=== PATIENT | female | born 1975 | race Caucasian/White ===

== ENCOUNTER 2016-08-27 21:36 | Emergency (ER) | payer SELFPAY ==
[2016-08-27 21:43] VITALS: BP 110/59; PULSE 71; TEMP 99; BMI 25.9
[2016-08-27] MEDS ORDERED: diphenhydrAMINE HCL 50 MG CAPSULE PO ONE (22:21)
[2016-08-27] MEDS ORDERED: DEXAMETHASONE SOD PHOSPHATE 10 MG/1 ML VIAL IM ONE (22:21)
[2016-08-27] MEDS ORDERED: DEXAMETHASONE SOD PHOSPHATE 10 MG/1 ML VIAL ONE (22:25)
[2016-08-27] MEDS ORDERED: diphenhydrAMINE HCL 25 MG CAPSULE (FP) PO ONE (22:25)
--- NOTE | 2016-08-27 22:27 | PDOC ---
History of Present Illness - General Chief Complaint: Rash Stated Complaint: RASH/HIVES Time Seen by Provider: 08/27/16 22:02 History Source: Patient Exam Limitations: No Limitations - History of Present Illness Initial Comments: 08/27/16 22:22 40 yr female with itchy rash to arms and legs for 4 days. Pt took benadryl with no relief. no fever no diff breathing or eating. no allergies. Severity: Yes: moderate Location: reports: extremities Respiratory Risk Factors: reports: no cause identified Past History - Past Medical History Allergies/Adverse Reactions: Allergies Allergy/AdvReac Type Severity Reaction Status Date / Time No Known Allergies Allergy Verified 08/27/16 21:39 Home Medications: Ambulatory Orders Diphenhydramine HCl [Benadryl -] 25 mg PO Q6H PRN #28 capsule 08/27/16 Other medical history: finger surgery - Surgical History Abdominal Surgery: Yes Cholecystectomy: (GALLSTONES.) - Psycho/Social/Smoking Cessation Hx Anxiety: No Suicidal Ideation: No Smoking History: Never smoked Have you smoked in the past 12 months: No Number of Cigarettes Smoked Daily: 0 Hx Alcohol Use: No Drug/Substance Use Hx: No Substance Use Type: None Review of Systems - Review of Systems Able to Perform ROS?: Yes Is the patient limited Cameroonian proficient: No Constitutional: No: Symptoms Reported HEENTM: No: Symptoms Reported Respiratory: No: Symptoms reported Cardiac (ROS): No: Symptoms Reported ABD/GI: No: Symptoms Reported : No: Symptoms Reported Musculoskeletal: No: Symptoms Reported Integumentary: Yes: See HPI, Rash *Physical Exam - Vital Signs Last Vital Signs Temp Pulse Resp BP Pulse Ox 99 F 71 18 110/59 99 08/27/16 21:40 08/27/16 21:40 08/27/16 21:40 08/27/16 21:40 08/27/16 21:40 - Physical Exam General Appearance: Yes: Nourished, Appropriately Dressed HEENT: positive: EOMI, JHON, Normal ENT Inspection, TMs Normal, Pharynx Normal Neck: positive: Supple. negative: Tender Respiratory/Chest: positive: Lungs Clear, Normal Breath Sounds Cardiovascular: positive: Regular Rhythm, Regular Rate Gastrointestinal/Abdominal: positive: Normal Bowel Sounds, Soft Musculoskeletal: positive: Normal Inspection Extremity: positive: Normal Capillary Refill Integumentary: positive: Normal Color, Dry, Warm, Hives (bilateral upper arms, outer thighs with hives), Rash Neurologic: positive: Fully Oriented, Alert, Normal Mood/Affect, Normal Response , Motor Strength 5/5 Medical Decision Making - Medical Decision Making 08/27/16 22:24 cc: allergic reaction, hives unknown cause will give decadron and benadryl 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 pt is afebrile non toxic vitals stable *DC/Admit/Observation/Transfer Diagnosis at time of Disposition: Hives Allergic reaction Qualifiers: Encounter type: initial encounter Qualified Code(s): T78.40XA - Allergy, unspecified, initial encounter - Discharge Dispostion Disposition: HOME Condition at time of disposition: Good - Prescriptions Prescriptions: Diphenhydramine HCl [Benadryl -] 25 mg PO Q6H PRN #28 capsule PRN Reason: itching - Referrals Referrals: Sheryl Pineda [Primary Care Provider] - - Patient Instructions Additional Instructions: wash all bed sheets, towels and clothing in hot water take benadryl as directed for itching follow with the distillery miller helper call tomorrow to make appointment call [phone] cool water to bathe 'use Aveeno oatmeal soap or body wash to help soothe the skin [place], [place] benadryl segn lo indicado para picar Siga con el dermatlogo llame maana para hacer holger llamar al [phone] Agua fra para baarse 'use Aveeno jabn de apolinar o lavado corporal para ayudar a calmar la piel Print Language: IVORIAN
== END 2016-08-27 23:00 | disposition home or self-care (01) ==
LOC: JERFT 21:36
PROC: 3E0233Z Introduction of Anti-inflammatory into Muscle, Percutaneous Approach (ICD-10-PCS; principal; 2016-08-27)
DX: L50.0 Allergic urticaria (principal); T78.40XA Allergy, unspecified, initial encounter; X58.XXXA Exposure to other specified factors, initial encounter
CPT/HCPCS: 99281-25

== ENCOUNTER 2016-09-24 13:39 | Emergency (ER) | payer SELFPAY ==
[2016-09-24 13:45] VITALS: BMI 25.4
[2016-09-24] MEDS ORDERED: HEMOQUE TEST 1 EACH EACH ONE (14:05)
[2016-09-24] MEDS ORDERED: ONDANSETRON 4 MG/2 ML VIAL IVPB ONE (14:41)
[2016-09-24] MEDS ORDERED: SODIUM CHLORIDE 1,000 ML IV STA (14:41)
[2016-09-24] MEDS ORDERED: MECLIZINE HCL 25 MG TABLET (FP) PO ONE (14:41)
[2016-09-24] MEDS ORDERED: ONDANSETRON 4 MG/2 ML VIAL ONE (14:57)
[2016-09-24] MEDS ORDERED: MECLIZINE HCL 25 MG TABLET (FP) ONE (14:57)
[2016-09-24 15:34] LABS: BASOPHIL 0.5 % (0-2.0); EOSINOPHIL 2.4 % (0-4.5); MCH 29.2 pg (25.7-33.7); MEAN CELL VOLUME 88.4 fl (80-96); MEAN PLT VOLUME 9.7 fl (7.5-11.1); NEUTROPHILS 63.5 % (42.8-82.8); PLATELET COUNT 242 K/MM3 (134-434); RDW 13.5 % (11.6-15.6); WHITE BLOOD COUNT 7.9 K/mm3 (4.0-10.0)
[2016-09-24 15:40] LABS: ALBUMIN 3.5 g/dl (3.4-5.0); ANION GAP 10 (8-16); BILIRUBIN,TOTAL 0.4 mg/dL (0.2-1.0); CALCIUM 8.7 mg/dL (8.5-10.1); CO2 25 mmol/L (21-32); CREATININE 0.5 mg/dL (0.55-1.02); GLUCOSE,RANDOM 115 mg/dL (74-106); SGPT/ALT 22 U/L (12-78); TOT PROT 7.1 g/dl (6.4-8.2)
[2016-09-24 15:43] LABS: ALK PHOS 56 U/L (45-117); TROPONIN I < 0.02 ng/ml (0.00-0.05)
[2016-09-24 15:47] LABS: SGOT/AST 21 U/L (15-37)
--- NOTE | 2016-09-24 16:24 | PDOC ---
History of Present Illness - General History Source: Patient Exam Limitations: No Limitations - History of Present Illness Initial Comments: 09/24/16 16:37 The patient is a 40-year-old woman with a significant past medical history of vertigo who presents to the emergency department for further evaluation of dizziness for today. She states that she is experiencing dizziness, described as room-spinning" sensations with associated nausea and left ear pain since this morning. She reports her symptoms are consisted with her vertigo for which she has experienced in the past. No vomiting. She denies any recent head injury. No other reported complaints. Her last menstrual period was on 09/16. She denies fever, chills, cough, hemoptysis, shortness of breath, headache. She denies chest pain, headache, lightheadedness, syncope, jaw/ back pain lower extremity pain/swelling, calf tenderness/pain She denies abdominal pain, vomiting, urinary symptoms. Allergies: No Known Drug Allergies. Pats Surgical History: Social History: No tobacco, EtOH and recreational drug use. Primary Care Physician: N/A <Susanne Miranda - Last Filed: 09/24/16 16:47> <Susan Baker - Last Filed: 09/24/16 20:07> <Chanda Umanzor - Last Filed: 09/25/16 21:54> - General Chief Complaint: Lightheaded Stated Complaint: DIZZINESS Time Seen by Provider: 09/24/16 14:40 Past History <Susanne Miranda - Last Filed: 09/24/16 16:47> <Susan Baker - Last Filed: 09/24/16 20:07> - Past Medical History Diabetes: Yes (iddm) Other medical history: vertigo - Surgical History Abdominal Surgery: Yes Cholecystectomy: (GALLSTONES.) - Psycho/Social/Smoking Cessation Hx Anxiety: No Suicidal Ideation: No Smoking History: Never smoked Have you smoked in the past 12 months: No Number of Cigarettes Smoked Daily: 0 Information on smoking cessation initiated: No Hx Alcohol Use: No Drug/Substance Use Hx: No Substance Use Type: None <Chanda Umanzor - Last Filed: 09/25/16 21:54> - Past Medical History Allergies/Adverse Reactions: Allergies Allergy/AdvReac Type Severity Reaction Status Date / Time No Known Allergies Allergy Verified 09/24/16 13:41 Home Medications: Ambulatory Orders Meclizine HCl [Antivert -] 25 mg PO TID PRN #21 tablet 09/24/16 Review of Systems - Review of Systems Able to Perform ROS?: Yes Comments:: 09/24/16 16:44 GENERAL/CONSTITUTIONAL: No: fever, chills, weakness, loss of appetite. HEAD, EYES, EARS, NOSE AND THROAT: Yes: Left ear pain. No: change in vision, discharge, sore throat, throat swelling. CARDIOVASCULAR: No: chest pain, lightheadedness, palpitations, syncope RESPIRATORY: No: cough, shortness of breath, wheezing, hemoptysis, stridor. GASTROINTESTINAL: Yes: Nausea. No: vomiting, abdominal cramping, diarrhea, rectal bleeding, constipation. GENITOURINARY: No: dysuria, hematuria, frequency, urgency, flank pain. MUSCULOSKELETAL: No: back pain, neck pain, joint pain, muscle swelling or pain SKIN AND BREASTS: No: lesions, pallor, rash or easy bruising. NEUROLOGIC: Yes: Vertigo No: headache, paresthesias, weakness ENDOCRINE: No: unexplained weight gain or loss HEMATOLOGIC/LYMPHATIC: No: anemia, easy bleeding, swelling nodes <Susanne Miranda - Last Filed: 09/24/16 16:47> *Physical Exam - Vital Signs Last Vital Signs Temp Pulse Resp BP Pulse Ox 98.0 F 77 18 108/69 100 09/24/16 13:42 09/24/16 13:42 09/24/16 13:42 09/24/16 13:42 09/24/16 13:42 - Physical Exam Comments: 09/24/16 16:45 GENERAL: The patient is in no acute distress. HEAD: Normal with no signs of trauma. EYES: PERRLA, EOMI, sclera anicteric, conjunctiva clear. No nystagmus. ENT: Ears normal, nares patent, oropharynx clear without exudates. Moist mucous membranes. NECK: Normal range of motion, supple without lymphadenopathy, JVD, or masses. LUNGS: Breath sounds equal, clear to auscultation bilaterally. No wheezes, and no crackles. HEART:Regular rate and rhythm, normal S1 and S2 without murmur, rub or gallop. ABDOMEN: Soft, nontender, normoactive bowel sounds. No guarding, no rebound. EXTREMITIES: Normal range of motion, no edema. No clubbing or cyanosis. No erythema, or tenderness. NEUROLOGICAL: Cranial nerves II through XII grossly intact. Normal speech. No focal neurological deficits. MUSCULOSKELETAL: Back non-tender to palpation, no CVA tenderness SKIN: Warm, Dry, normal turgor, no rashes or lesions noted. <MirandaSusanne - Last Filed: 09/24/16 16:47> - Vital Signs Last Vital Signs Temp Pulse Resp BP Pulse Ox 98.0 F 77 18 108/69 100 09/24/16 13:42 09/24/16 13:42 09/24/16 13:42 09/24/16 13:42 09/24/16 13:42 <Susan Baker - Last Filed: 09/24/16 20:07> - Vital Signs Last Vital Signs Temp Pulse Resp BP Pulse Ox 98.0 F 77 18 108/69 100 09/24/16 13:42 09/24/16 13:42 09/24/16 13:42 09/24/16 13:42 09/24/16 13:42 <Chanda Umanzor - Last Filed: 09/25/16 21:54> Heart Score/ECG Review #1 ECG reviewed & interpreted by me at: 16:14 09/24/16 16:14 Twelve-lead EKG was performed and reviewed by me. There is normal sinus rhythm with a slightly bradycardiac rate of 55 bpm. The axis is normal. The intervals are normal - pr:144ms, QRS: 80ms, QTc:411ms. There are no ST elevations or depressions. T waves upright <Chanda Umanzor - Last Filed: 09/25/16 21:54> ED Treatment Course - LABORATORY CBC & Chemistry Diagram: 09/24/16 15:10 09/24/16 15:10 - ADDITIONAL ORDERS Additional order review: Laboratory Results 09/24/16 09/24/16 09/24/16 15:10 15:10 14:18 Sodium 141 Potassium 4.3 Chloride 106 Carbon Dioxide 25 Anion Gap 10 BUN 13 Creatinine 0.5 L Creat Clearance w eGFR > 60 POC Glucometer 120.98835 Random Glucose 115 H D Calcium 8.7 Total Bilirubin 0.4 D AST 21 D ALT 22 D Alkaline Phosphatase 56 Creatine Kinase 199 H CK-MB (CK-2) 1.109 Troponin I < 0.02 Total Protein 7.1 Albumin 3.5 Serum , Qual Negative 09/24/16 09/24/16 15:10 14:18 RBC 4.47 MCV 88.4 MCHC 33.0 RDW 13.5 MPV 9.7 D Neutrophils % 63.5 Lymphocytes % 28.7 Monocytes % 4.9 Eosinophils % 2.4 Basophils % 0.5 POC Glucometer 120.83129 - Medications Given in the ED: ED Medications Discontinued Medications Generic Name Dose Route Start Last Admin Trade Name Freq PRN Reason Stop Dose Admin Meclizine HCl 25 mg 09/24/16 14:41 09/24/16 15:04 Antivert - PO 09/24/16 14:42 25 mg ONCE ONE Administration Ondansetron HCl 4 mg 09/24/16 14:41 09/24/16 15:04 Zofran Injection IVPB 09/24/16 14:42 4 mg ONCE ONE Administration <Susanne Miranda - Last Filed: 09/24/16 16:47> - LABORATORY CBC & Chemistry Diagram: 09/24/16 15:10 09/24/16 15:10 - ADDITIONAL ORDERS Additional order review: Laboratory Results 09/24/16 09/24/16 09/24/16 15:10 15:10 14:18 Sodium 141 Potassium 4.3 Chloride 106 Carbon Dioxide 25 Anion Gap 10 BUN 13 Creatinine 0.5 L Creat Clearance w eGFR > 60 POC Glucometer 120.54731 Random Glucose 115 H D Calcium 8.7 Total Bilirubin 0.4 D AST 21 D ALT 22 D Alkaline Phosphatase 56 Creatine Kinase 199 H CK-MB (CK-2) 1.109 Troponin I < 0.02 Total Protein 7.1 Albumin 3.5 Serum , Qual Negative 09/24/16 09/24/16 15:10 14:18 RBC 4.47 MCV 88.4 MCHC 33.0 RDW 13.5 MPV 9.7 D Neutrophils % 63.5 Lymphocytes % 28.7 Monocytes % 4.9 Eosinophils % 2.4 Basophils % 0.5 POC Glucometer 120.22408 - Medications Given in the ED: ED Medications Discontinued Medications Generic Name Dose Route Start Last Admin Trade Name Freq PRN Reason Stop Dose Admin Lorazepam 0.5 mg 09/24/16 17:22 09/24/16 18:16 Ativan Injection - IVPUSH 09/24/16 17:23 Not Given ONCE ONE Meclizine HCl 25 mg 09/24/16 14:41 09/24/16 15:04 Antivert - PO 09/24/16 14:42 25 mg ONCE ONE Administration Ondansetron HCl 4 mg 09/24/16 14:41 09/24/16 15:04 Zofran Injection IVPB 09/24/16 14:42 4 mg ONCE ONE Administration <Susan Baker - Last Filed: 09/24/16 20:07> - LABORATORY CBC & Chemistry Diagram: 09/24/16 15:10 09/24/16 15:10 - ADDITIONAL ORDERS Additional order review: Laboratory Results 09/24/16 09/24/16 09/24/16 15:10 15:10 14:18 Sodium 141 Potassium 4.3 Chloride 106 Carbon Dioxide 25 Anion Gap 10 BUN 13 Creatinine 0.5 L Creat Clearance w eGFR > 60 POC Glucometer 120.60409 Random Glucose 115 H D Calcium 8.7 Total Bilirubin 0.4 D AST 21 D ALT 22 D Alkaline Phosphatase 56 Creatine Kinase 199 H CK-MB (CK-2) 1.109 Troponin I < 0.02 Total Protein 7.1 Albumin 3.5 Serum , Qual Negative 09/24/16 09/24/16 15:10 14:18 RBC 4.47 MCV 88.4 MCHC 33.0 RDW 13.5 MPV 9.7 D Neutrophils % 63.5 Lymphocytes % 28.7 Monocytes % 4.9 Eosinophils % 2.4 Basophils % 0.5 POC Glucometer 120.31511 - Medications Given in the ED: ED Medications Discontinued Medications Generic Name Dose Route Start Last Admin Trade Name Freq PRN Reason Stop Dose Admin Meclizine HCl 25 mg 09/24/16 14:41 09/24/16 15:04 Antivert - PO 09/24/16 14:42 25 mg ONCE ONE Administration Ondansetron HCl 4 mg 09/24/16 14:41 09/24/16 15:04 Zofran Injection IVPB 09/24/16 14:42 4 mg ONCE ONE Administration <Chanda Umanzor - Last Filed: 09/25/16 21:54> Medical Decision Making - Medical Decision Making A portion of this note was documented by scribe services under my direction. I have reviewed the details of the note, within reason, and agree with the documentation with the following case summary and management plan written by me. Nursing documentation reviewed and incorporated into medical decision making 09/24/16 16:17 This is a 40-year-old female with a history of vertigo, no history of diabetes, hypertension, hyperlipidemia Patient presents emergency department with a complaint of vertigo. Patient states she woke with her symptoms Her symptoms are identical to her prior episodes of vertigo. No focal weakness or numbness. No visual deficits. No slurred speech. On examination: RRR CTA NEURO: Mental status: The patient is oriented x3. Cranial nerves: Cranial nerves II through XII are intact Motor: The upper extremities are 5 over 5 in all muscle groups. The lower extremities are 5 over 5 in all muscle groups. Sensation: Sensation is intact to light touch throughout. Cerebellar: Aqobzo-lmuagq-onhw is normal in both upper extremities. Heel-knee- chatman is normal in both lower extremities. Reflexes: 2+ and symmetric in the upper and lower extremities. Gait: Normal. Ambulatory to the bathroom with no difficulty Differential diagnosis: 09/24/16 17:22 Patient remains vertiginous. She would like to go home Does not want to stay for any additional medication (Ativan) or for Head CT 09/24/16 17:45 Laboratory Tests 09/24/16 09/24/16 09/24/16 15:10 15:10 15:10 WBC 7.9 Hgb 13.0 Hct 39.5 Plt Count 242 Sodium 141 Potassium 4.3 Chloride 106 Carbon Dioxide 25 BUN 13 Creatinine 0.5 L Random Glucose 115 H D Creatine Kinase 199 H CK-MB (CK-2) 1.109 Troponin I < 0.02 Serum , Qual Negative Pt ambulatory to the bathroom with no assistance No new neurolgical findings As patient was about to be discharged, she states she would like to be imaged Will do CT scan Pt signed out to Dr Baker Prescription for Meclizine written Clinical Impression: vertigo <Chanda Umanzor - Last Filed: 09/25/16 21:54> *DC/Admit/Observation/Transfer - Attestations Scribe Attestion: 09/24/16 16:45 Documentation prepared by Susanne Miranda, acting as medical laboratory specialist for Chanda Umanzor MD. <Susanne Miranda - Last Filed: 09/24/16 16:47> <Susan Baker - Last Filed: 09/24/16 20:07> - Discharge Dispostion Admit: No <Chanda Umanzor - Last Filed: 09/25/16 21:54> Diagnosis at time of Disposition: Vertigo - Discharge Dispostion Disposition: HOME Condition at time of disposition: Stable - Prescriptions Prescriptions: Meclizine HCl [Antivert -] 25 mg PO TID PRN #21 tablet PRN Reason: Vertigo - Referrals Referrals: Sarahy Henderson MD [Staff Physician] - - Patient Instructions Printed Discharge Instructions: DI for Vertigo, Vertigo (Alternative Therapy) Additional Instructions: Thank you for coming in to the ER today Please take medications as prescribed Please return to the ER for any other concerns or complaints please follow up with a primary care physician - Post Discharge Activity Work/School Note: Back to Work
[2016-09-24] MEDS ORDERED: LORAZEPAM CARPU-JECT 2 MG/ML DISP.SYRIN IVPUSH ONE (17:22)
[2016-09-24 20:34] VITALS: BP 110/74; PULSE 60; TEMP 97.8
--- NOTE | 2016-09-25 14:14 | EKG ---
Test Reason : Blood Pressure : / mmHG Vent. Rate : 055 BPM Atrial Rate : 055 BPM P-R Int : 144 ms QRS Dur : 080 ms QT Int : 430 ms P-R-T Axes : 028 048 020 degrees QTc Int : 411 ms SINUS BRADYCARDIA OTHERWISE NORMAL ECG WHEN COMPARED WITH ECG OF 07-APR-2015 13:10, NO SIGNIFICANT CHANGE WAS FOUND Confirmed by TOÑA BANUELOS MD ([id number]) on 09/25/2016 2:14:13 PM Referred By: Confirmed By:TOÑA BANUELOS MD
== END 2016-09-24 20:35 | disposition home or self-care (01) ==
LOC: JER 13:39
PROC: 3E033GC Introduction of Other Therapeutic Substance into Peripheral Vein, Percutaneous Approach (ICD-10-PCS; principal; 2016-09-24)
DX: R42 Dizziness and giddiness (principal)
CPT/HCPCS: 36415; 70450-TC; 80053; 82550; 82553; 84484; 84703; 85025; 93005; 93010; 99284-25

== ENCOUNTER 2017-01-26 17:32 | Emergency (ER) | payer SELFPAY ==
[2017-01-26 17:44] VITALS: BP 116/67; PULSE 70; TEMP 99.2; BMI 28.0
[2017-01-26] MEDS ORDERED: diphenhydrAMINE HCL 12.5 MG/5 ML UNIT-DOSE CUPS PO ONE (19:05)
--- NOTE | 2017-01-26 19:11 | PDOC ---
History of Present Illness - General Chief Complaint: Rash Stated Complaint: RASH Time Seen by Provider: 01/26/17 19:01 History Source: Patient Exam Limitations: No Limitations - History of Present Illness Initial Comments: 01/26/17 19:06 41 yr female with itchy rash under eyes, eyelids for one week. Pt with some itching to the forehead. no fever denies using any different makeup or facial creams. 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 No medical history or allergies. Timing/Duration: reports: week Severity: Yes: mild Location: reports: face Past History - Past Medical History Allergies/Adverse Reactions: Allergies Allergy/AdvReac Type Severity Reaction Status Date / Time No Known Allergies Allergy Verified 01/26/17 17:40 Home Medications: Ambulatory Orders Cetirizine HCl 10 mg PO DAILY #10 tablet 01/26/17 Hydrocortisone 0.5% Cream [Hytone 0.5% Cream -] 1 applic TP BID #1 tube Diabetes: No - Surgical History Abdominal Surgery: Yes Cholecystectomy: (GALLSTONES.) - Immunization History Immunization Up to Date: Yes - Suicide/Smoking/Psychosocial Hx Smoking History: Never smoked Have you smoked in the past 12 months: No Number of Cigarettes Smoked Daily: 0 Information on smoking cessation initiated: No Hx Alcohol Use: No Drug/Substance Use Hx: No Substance Use Type: None Review of Systems - Review of Systems Able to Perform ROS?: Yes Is the patient limited Greek proficient: No Constitutional: No: Symptoms Reported HEENTM: No: Symptoms Reported Respiratory: No: Symptoms reported Cardiac (ROS): No: Symptoms Reported ABD/GI: No: Symptoms Reported : No: Symptoms Reported Musculoskeletal: No: Symptoms Reported Integumentary: Yes: Symptoms Reported *Physical Exam - Vital Signs Last Vital Signs Temp Pulse Resp BP Pulse Ox 99.2 F 70 14 116/67 100 01/26/17 17:40 01/26/17 17:40 01/26/17 17:40 01/26/17 17:40 01/26/17 17:40 - Physical Exam General Appearance: Yes: Nourished, Appropriately Dressed HEENT: positive: EOMI, JHON Neck: positive: Supple Respiratory/Chest: positive: Lungs Clear, Normal Breath Sounds Cardiovascular: positive: Regular Rhythm, Regular Rate Gastrointestinal/Abdominal: positive: Normal Bowel Sounds, Soft Musculoskeletal: positive: Normal Inspection Extremity: positive: Normal Capillary Refill, Normal Inspection, Normal Range of Motion Integumentary: positive: Normal Color, Dry, Warm, Rash (bilateral eyelids and under the eys with red scaly rash approximately 3cm in size under the eyes) Neurologic: positive: Fully Oriented, Alert, Normal Mood/Affect, Normal Response , Motor Strength 5/5 Medical Decision Making - Medical Decision Making 01/26/17 19:09 cc: rash itchy to eyelids and under the eyes for one week no fever no other rash to the body will give benadryl now dc with cortisone 0.5% cream to the rash *DC/Admit/Observation/Transfer Diagnosis at time of Disposition: Contact dermatitis Qualifiers: Contact dermatitis type: allergic Contact dermatitis trigger: unspecified trigger Qualified Code(s): L23.9 - Allergic contact dermatitis, unspecified cause - Discharge Dispostion Disposition: HOME Condition at time of disposition: Good - Prescriptions Prescriptions: Cetirizine HCl 10 mg PO DAILY #10 tablet Hydrocortisone 0.5% Cream [Hytone 0.5% Cream -] 1 applic TP BID #1 tube - Referrals Referrals: Pretty Lagn MD [Staff Physician] - - Patient Instructions Additional Instructions: cool compresses to the face apply the cream as directed twice a day take bendaryl at home for itching at bedtime , next dose tomorrow night take cetirizine in the morning for itching and rash
[2017-01-26] MEDS ORDERED: diphenhydrAMINE HCL 12.5 MG/5 ML UNIT-DOSE CUPS ONE (19:16)
== END 2017-01-26 19:26 | disposition home or self-care (01) ==
LOC: JERFT 17:32
DX: L23.9 Allergic contact dermatitis, unspecified cause (principal)
CPT/HCPCS: 99281-25

== ENCOUNTER 2017-06-19 12:15 | Emergency (ER) | payer SELFPAY ==
[2017-06-19 12:29] VITALS: TEMP 98.1; BMI 29.1
[2017-06-19] MEDS ORDERED: SODIUM CHLORIDE 0.9% 1000 ML INFUS.BAG IV ONE (13:57)
[2017-06-19] MEDS ORDERED: MECLIZINE HCL 25 MG TABLET (FP) PO ONE (13:57)
[2017-06-19] MEDS ORDERED: MECLIZINE HCL 25 MG TABLET (FP) ONE (14:08)
--- NOTE | 2017-06-19 14:21 | PDOC ---
History of Present Illness - General Chief Complaint: Lightheaded Stated Complaint: DIZZINESS Time Seen by Provider: 06/19/17 13:33 History Source: Patient Exam Limitations: Language Barrier - History of Present Illness Initial Comments: 06/19/17 14:18 The patient is a 41F with a PMH of vertigo who presents with acute onset dizziness, nausea, and vomiting. The patient states that she felt her normal state of health last night. This morning, she woke up and felt very nauseous, vomited x 4 NBNB, and a room spinning sensation which she identifies as exactly like her vertigo sensation. She denies any other complaints including fever, chills, nausea, vomiting. She also admits to dysuria. LMP is May 04. She is unsure if she is . Past History - Past Medical History Allergies/Adverse Reactions: Allergies Allergy/AdvReac Type Severity Reaction Status Date / Time No Known Allergies Allergy Verified 06/19/17 12:29 Home Medications: Ambulatory Orders Cephalexin Monohydrate [Keflex -] 500 mg PO BID #14 capsule 06/19/17 Meclizine HCl [Antivert -] 25 mg PO DAILY #7 tablet 06/19/17 No Known Home Medication 06/19/17 COPD: No Diabetes: No - Surgical History Abdominal Surgery: Yes Cholecystectomy: (GALLSTONES.) - Immunization History Immunization Up to Date: Yes - Suicide/Smoking/Psychosocial Hx Smoking History: Never smoked Have you smoked in the past 12 months: No Number of Cigarettes Smoked Daily: 0 Hx Alcohol Use: No Drug/Substance Use Hx: No Substance Use Type: None Review of Systems - Review of Systems Able to Perform ROS?: Yes Comments:: 06/19/17 14:31 GENERAL/CONSTITUTIONAL: Positive for generalized weakness and dizziness. No fever or chills. HEAD, EYES, EARS, NOSE AND THROAT: No change in vision. No ear pain or discharge. No sore throat. CARDIOVASCULAR: No chest pain, palpitations, or lightheadedness. RESPIRATORY: No cough, wheezing, shortness of breath, or hemoptysis. GASTROINTESTINAL: Positive for nausea and vomiting. No diarrhea, constipation, or abdominal pain. GENITOURINARY: Positive for dysuria. No frequency, hematuria, or change in urination. MUSCULOSKELETAL: No joint or muscle swelling or pain. No neck or back pain. SKIN: No rash or lesions. NEUROLOGIC: No headache, numbness, tingling, weakness, loss of consciousness, or change in strength/sensation. ENDOCRINE: No increased thirst. No abnormal weight change. HEMATOLOGIC/LYMPHATIC: No anemia, easy bleeding, or history of blood clots. ALLERGIC/IMMUNOLOGIC: No hives or skin allergy. Is the patient limited Egyptian proficient: No *Physical Exam - Vital Signs Last Vital Signs Temp Pulse Resp BP Pulse Ox 98.1 F 66 18 111/53 99 06/19/17 12:27 06/19/17 12:27 06/19/17 12:27 06/19/17 12:27 06/19/17 12:27 - Physical Exam Comments: 06/19/17 14:32 GENERAL: Well developed, well nourished. Awake and alert. No acute distress. HEENT: Normocephalic, atraumatic. Hearing grossly normal. Moist mucous membranes. PERRLA, EOMI. No conjunctival pallor. Sclera are non-icteric. Oropharynx is clear. NECK: Supple. Full ROM. No JVD. CARDIOVASCULAR: Regular rate and rhythm. No murmurs, rubs, or gallops. PULMONARY: No evidence of respiratory distress. Lungs clear to auscultation bilaterally. No wheezing, rales or rhonchi. ABDOMINAL: Soft. Non-tender. Non-distended. No rebound or guarding. GENITOURINARY: No CVA tenderness bilaterally. MUSCULOSKELETAL: Normal range of motion at all joints. No bony deformities or tenderness. EXTREMITIES: No cyanosis. No clubbing. No edema. No calf tenderness. SKIN: Warm and dry. Normal capillary refill. No rashes. No jaundice. NEUROLOGICAL: Alert, awake, appropriate. Cranial nerves 2-12 intact. No deficits to light touch and temperature in face, upper extremities and lower extremities. No motor deficits in the in face, upper extremities and lower extremities. Finger to nose normal bilaterally. Normal speech. Gait is normal without ataxia. PSYCHIATRIC: Cooperative. Good eye contact. Appropriate mood and affect. ED Treatment Course - LABORATORY CBC & Chemistry Diagram: 06/19/17 14:30 06/19/17 14:30 Medical Decision Making - Medical Decision Making 06/19/17 14:33 The patient is a 41F with a PMH of vertigo who presents with acute onset nausea , vomiting, and vertiginous symptoms. I will check basic labs to r/o any electrolyte abnormalities and UA for dysuria. Will check u-preg and EKG. Will give meclizine and zofran for nausea and dizziness relief. Pending labs and EKG. 06/19/17 16:03 Pt is tolerating PO and ambulating well. Dizziness is controlled with meclizine. Will send script for meclizine and d/c pt with PCP f/u. 06/19/17 16:07 Serum positive. Pending UA and d/c. 06/19/17 16:54 UA indicates UTI. Will d/c with keflex BID x 7 days 500 mg. Pt agrees and will be d/c. *DC/Admit/Observation/Transfer Diagnosis at time of Disposition: Vertigo - Discharge Dispostion Disposition: HOME Condition at time of disposition: Stable Admit: No - Prescriptions Prescriptions: Cephalexin Monohydrate [Keflex -] 500 mg PO BID #14 capsule Meclizine HCl [Antivert -] 25 mg PO DAILY #7 tablet - Referrals Referrals: Kb Miranda MD [Staff Physician] - Ese Zapien MD [Staff Physician] - - Patient Instructions Printed Discharge Instructions: DI for Vertigo Additional Instructions: Please return to the ER if symptoms persist, worsen, or new symptoms arise. Please follow up with your primary care physician in 2-3 days. Please return to the ER if you have any signs or symptoms of chest pain, shortness of breath, uncontrollable fever, chills, nausea, vomiting, numbness, tingling, or weakness in any part of your body, changes in vision, or slurred speech. Please take your medications as prescribed. Por favor regrese a la jona de emergencias si los sntomas persisten, empeoran o surgen nuevos sntomas. Por favor, wilfrid un seguimiento con he mdico de atencin primaria en 2-3 marie. Por favor regrese a la jona de emergencia si tiene signos o sntomas de dolor en el pecho, dificultad para respirar, fiebre incontrolable, escalofros, n useas, vmitos, entumecimiento, hormigueo o debilidad en cualquier parte de he cuerpo, cambios en la visin o dificultad para hablar. Por favor tome jd medicamentos segn lo recetado. Print Language: ICELANDIC - Post Discharge Activity Forms/Work/School Notes: Back to Work
--- NOTE | 2017-06-19 14:23 | PDOC ---
Attending Attestation - HPI HPI: 06/19/17 14:28 41 yo F with history of vertigo here today for 1 day of room-spinning dizziness , c/w previous vertigo, with associated nausea, NBNB vomiting. No chest pain or shortness of breath. No headache or blurred vision. Documentation prepared by Desirae Felix, acting as medical dir for Jaciel Saldaña MD. <Desirae Felix - Last Filed: 06/19/17 14:28> - Resident Resident Name: Piyush Aden - ED Attending Attestation I have performed the following: I have examined & evaluated the patient, The case was reviewed & discussed with the resident, I agree w/resident's findings & plan, Exceptions are as noted - Physicial Exam PE: 06/19/17 16:19 EXAMINATION CONSTITUTIONAL: Well-appearing; well-nourished; in no apparent distress HEAD: Normocephalic; atraumatic EYES: PERRL; EOM intact; right sided endpoint nystagmus (fatigable) ENMT: External appears normal; normal oropharynx NECK: Supple; no bruits CARD: Normal S1, S2; no murmurs, rubs, or gallops RESP: Normal chest excursion with respiration; breath sounds clear and equal bilaterally; no wheezes, rhonchi, or rales ABD: Soft, non-distended; non-tender; no palpable organomegaly, no palpable hernias EXT: Normal ROM in all four extremities; non-tender to palpation; distal pulses intact SKIN: Warm, dry, no rash NEURO: Cranial nerves II through XII are grossly intact; motor is 5 of 54; no pronation drift; there is no dysmetria, rapid alternating movements are intact bilaterally, [id number] is intact bilaterally, finger to nose is intact bilaterally; - Medical Decision Making 06/19/17 16:22 Patient is well-appearing 41-year-old female who presents with signs and symptoms of peripheral vertigo. Schulz-pike's test is positive. I suspect peripheral vertigo. We'll administer meclizine. UCG is positive. Will rule out I symptomatically bacteria. Will discharge with DINING ROOM SUPERVISOR follow-up. <Jaciel Saldaña - Last Filed: 06/19/17 16:23>
[2017-06-19 14:59] LABS: ALBUMIN 3.4 g/dl (3.4-5.0); ALK PHOS 53 U/L (45-117); ANION GAP 13 (8-16); BILIRUBIN,TOTAL 0.3 mg/dL (0.2-1.0); BLOOD UREA NITROGEN 11 mg/dL (7-18); CALCIUM 8.8 mg/dL (8.5-10.1); CHLORIDE 106 mmol/L (98-107); CO2 20 mmol/L (21-32); CREATININE 0.5 mg/dL (0.55-1.02); GLUCOSE,RANDOM 100 mg/dL (74-106); POTASSIUM 3.8 mmol/L (3.5-5.1); SGOT/AST 10 U/L (15-37); SGPT/ALT 16 U/L (12-78); SODIUM 139 mmol/L (136-145); TOT PROT 7.4 g/dl (6.4-8.2)
[2017-06-19 15:03] LABS: BASO % 0.2 % (0-2.0); EOS % 0.4 % (0-4.5); HEMATOCRIT 38.8 % (32.4-45.2); HEMOGLOBIN 12.6 GM/dL (10.7-15.3); LYMPH % 15.9 % (8-40); MCH 28.4 pg (25.7-33.7); MCHC 32.4 g/dl (32.0-36.0); MEAN CELL VOLUME 87.7 fl (80-96); MEAN PLT VOLUME 9.1 fl (7.5-11.1); MONO % 4.1 % (3.8-10.2); NEUT % 79.4 % (42.8-82.8); PLATELET COUNT 231 K/MM3 (134-434); RBC 4.42 M/mm3 (3.60-5.2); RDW 13.3 % (11.6-15.6); WHITE BLOOD COUNT 13.1 K/mm3 (4.0-10.0)
[2017-06-19] MEDS ORDERED: ONDANSETRON 4 MG/2 ML VIAL IVPUSH ONE (15:06)
[2017-06-19 15:42] LABS: URINE APPEARANCE CLOUDY; URINE BILIRUBIN NEGATIVE (NEGATIVE); URINE BLOOD 1+ (NEGATIVE); URINE COLOR AMBER; URINE GLUCOSE (UA) 1+ (NEGATIVE); URINE KETONE TRACE (NEGATIVE); URINE LEUK ESTERASE TRACE (NEGATIVE); URINE NITRITE NEGATIVE (NEGATIVE); URINE UROBILINOGEN NEGATIVE mg/dL (0.2-1.0)
[2017-06-19] MEDS ORDERED: ONDANSETRON 4 MG/2 ML VIAL ONE (16:03)
[2017-06-19 16:07] LABS: URINE PROTEIN 2+ (NEGATIVE)
[2017-06-19 16:23] LABS: EPI CELLS MODERATE /HPF (FEW); URINE BACTERIA MODERATE /hpf (NONE SEEN); URINE MUCUS MANY
[2017-06-19 17:03] VITALS: BP 105/79; PULSE 71
--- NOTE | 2017-06-20 16:09 | EKG ---
Test Reason : Blood Pressure : / mmHG Vent. Rate : 057 BPM Atrial Rate : 057 BPM P-R Int : 142 ms QRS Dur : 072 ms QT Int : 430 ms P-R-T Axes : 043 057 032 degrees QTc Int : 418 ms SINUS BRADYCARDIA OTHERWISE NORMAL ECG WHEN COMPARED WITH ECG OF 24-SEP-2016 15:11, NO SIGNIFICANT CHANGE WAS FOUND Confirmed by BRIAN HORNER MD ([id number]) on 06/20/2017 4:09:30 PM Referred By: Confirmed By:BRIAN HORNER MD
== END 2017-06-19 17:03 | disposition home or self-care (01) ==
LOC: JER 12:15
DX: O26.891 Other specified pregnancy related conditions, first trimester (principal); R42 Dizziness and giddiness; R30.0 Dysuria; Z3A.00 Weeks of gestation of pregnancy not specified
CPT/HCPCS: 36415; 80053; 81003; 81015; 84703; 85025; 93005; 93010; 99282-25

== ENCOUNTER 2017-06-25 17:15 | Emergency (ER) | payer SELFPAY ==
--- NOTE | 2017-06-25 17:20 | PDOC ---
Rapid Medical Evaluation Time Seen by Provider: 06/25/17 17:15 Medical Evaluation: Allergies Allergy/AdvReac Type Severity Reaction Status Date / Time No Known Allergies Allergy Verified 06/19/17 12:29 06/25/17 17:15 I have performed a brief in-person evaluation of this patient. The patient presents with a chief complaint of: ~6 wks , vertigo x 6 days, "sometimes i have pain on the left side of my head', seen here last wed but didn't go away, vomiting once today, finished meds given Pertinent physical exam findings: well appearing I have ordered the following: labs The patient will proceed to the ED for further evaluation. Discharge Disposition - Diagnosis Vertigo - Referrals - Patient Instructions - Post Discharge Activity
[2017-06-25 17:21] VITALS: TEMP 98.7; BMI 29.1
[2017-06-25 17:43] LABS: BASO % 0.2 % (0-2.0); HEMATOCRIT 36.2 % (32.4-45.2); HEMOGLOBIN 12.1 GM/dL (10.7-15.3); LYMPH % 30.5 % (8-40); MCH 29.6 pg (25.7-33.7); MCHC 33.6 g/dl (32.0-36.0); MEAN CELL VOLUME 88.2 fl (80-96); MEAN PLT VOLUME 8.3 fl (7.5-11.1); MONO % 6.2 % (3.8-10.2); NEUT % 60.1 % (42.8-82.8); PLATELET COUNT 240 K/MM3 (134-434); RDW 13.5 % (11.6-15.6); WHITE BLOOD COUNT 9.4 K/mm3 (4.0-10.0)
--- NOTE | 2017-06-25 18:05 | PDOC ---
History of Present Illness - History of Present Illness Initial Comments: 06/25/17 17:57 41 yo F at 6 wga , LMP 05/16/17 with h/o vertigo who presents with veritgo. Endorses 2 years of chronic vertigo, BL ear pain, and left ear tinnitus. Symptoms worse with movement. Patient recently evaluated in [facility] ED ( 06/19/17) for spinning sensation, nausea, non biliary emesis. Nausea and vomitting now improved. States that she ran out of Meclizine 1 week ago, and reports decreased efficacy of meclzine within the past month. Denies N/V, F/C, CP, SOB, neck stiffness, [place], vision changes, hearing loss, abdominal pain, urinary complaints, lightheadedness, weakness, sensory changes. Does not follow with ENT , or PCP. Prior head CT 09/24/2016 with no acute pathology. Last [employer] Agent appointment 13 years ago. [facility] is where patient receives /antepartum care. Recent UTI ( 06/19) treated with 7 days of Keflex. <Rony Calero - Last Filed: 06/25/17 18:26> <Susan Baker - Last Filed: 06/25/17 21:28> - General Chief Complaint: Lightheaded Stated Complaint: 7 WKS PREG PAIN Time Seen by Provider: 06/25/17 17:15 Past History - Past Medical History COPD: No DVT: No Diabetes: No Other medical history: VERTIGO - Surgical History Abdominal Surgery: Yes Cholecystectomy: Yes (GALLSTONES.) - Immunization History Immunization Up to Date: Yes - Suicide/Smoking/Psychosocial Hx Smoking History: Never smoked Have you smoked in the past 12 months: No Number of Cigarettes Smoked Daily: 0 Information on smoking cessation initiated: No Hx Alcohol Use: No Drug/Substance Use Hx: No Substance Use Type: None <Rony Calero - Last Filed: 06/25/17 18:26> <Susan Baker - Last Filed: 06/25/17 21:28> - Past Medical History Allergies/Adverse Reactions: Allergies Allergy/AdvReac Type Severity Reaction Status Date / Time No Known Allergies Allergy Verified 06/25/17 17:16 Home Medications: Ambulatory Orders Cephalexin Monohydrate [Keflex -] 500 mg PO BID #14 capsule 06/19/17 Meclizine HCl [Antivert -] 25 mg PO DAILY #7 tablet 06/19/17 Review of Systems - Review of Systems Comments:: 06/25/17 17:58 GENERAL/CONSTITUTIONAL: + Vertigo, tinnitus, ear pain. No fever or chills. No weakness. HEAD, EYES, EARS, NOSE AND THROAT: No change in vision. No ear pain or discharge. No sore throat.- CARDIOVASCULAR: No chest pain or shortness of breath RESPIRATORY: No cough, wheezing, or hemoptysis. GASTROINTESTINAL: No nausea, vomiting, diarrhea or constipation. GENITOURINARY: No dysuria, frequency, or change in urination. MUSCULOSKELETAL: No joint or muscle swelling or pain. No neck or back pain. SKIN: No rash NEUROLOGIC: No headache, vertigo, loss of consciousness, or change in strength/ sensation. ENDOCRINE: No increased thirst. No abnormal weight change HEMATOLOGIC/LYMPHATIC: No anemia, easy bleeding, or history of blood clots. ALLERGIC/IMMUNOLOGIC: No hives or skin allergy. <Rony Calero - Last Filed: 06/25/17 18:26> *Physical Exam - Vital Signs Last Vital Signs Temp Pulse Resp BP Pulse Ox 98.7 F 80 18 114/78 100 06/25/17 17:17 06/25/17 17:17 06/25/17 17:17 06/25/17 17:17 06/25/17 17:17 - Physical Exam Comments: 06/25/17 17:58 GENERAL: Awake, alert, and fully oriented, in no acute distress HEAD: No signs of trauma, normocephalic, atraumatic EYES: PERRLA, EOMI, sclera anicteric, conjunctiva clear ENT: Left ear cerumen impacted. Right TM intact with absent erythema, bulging, retraction. Hearing grossly normal, nares patent, oropharynx clear without exudates. Moist mucosa NECK: Normal ROM, supple, no lymphadenopathy, JVD, or masses LUNGS: No distress, speaks full sentences, clear to auscultation bilaterally HEART: Regular rate and rhythm, normal S1 and S2, no murmurs, rubs or gallops, peripheral pulses normal and equal bilaterally. EXTREMITIES : Normal inspection, Normal range of motion, no edema. No clubbing or cyanosis. NEUROLOGICAL: Cranial nerves II through XII grossly intact. Normal speech, normal gait, no focal sensorimotor deficits. Absent dysmetria on FTN. Normal ANA. SKIN: Warm, Dry, normal turgor, no rashes or lesions noted <Rony Calero - Last Filed: 06/25/17 18:26> - Vital Signs Last Vital Signs Temp Pulse Resp BP Pulse Ox 98.7 F 80 18 114/78 100 06/25/17 17:17 06/25/17 17:17 06/25/17 17:17 06/25/17 17:17 06/25/17 17:17 <Susan Baker - Last Filed: 06/25/17 21:28> ED Treatment Course - LABORATORY CBC & Chemistry Diagram: 06/25/17 17:27 06/25/17 17:27 - ADDITIONAL ORDERS Additional order review: Laboratory Results 06/25/17 17:27 WBC 9.4 RBC 4.10 Hgb 12.1 Hct 36.2 MCV 88.2 MCH 29.6 MCHC 33.6 RDW 13.5 Plt Count 240 MPV 8.3 Neutrophils % 60.1 D Lymphocytes % 30.5 D Monocytes % 6.2 Eosinophils % 3.0 D Basophils % 0.2 06/25/17 17:27 RBC 4.10 MCV 88.2 MCHC 33.6 RDW 13.5 MPV 8.3 Neutrophils % 60.1 D Lymphocytes % 30.5 D Monocytes % 6.2 Eosinophils % 3.0 D Basophils % 0.2 <Rony Calero - Last Filed: 06/25/17 18:26> - LABORATORY CBC & Chemistry Diagram: 06/25/17 17:27 06/25/17 17:27 - ADDITIONAL ORDERS Additional order review: Laboratory Results 06/25/17 17:27 Sodium 138 Potassium 3.9 Chloride 107 Carbon Dioxide 24 Anion Gap 7 L BUN 11 Creatinine 0.4 L Creat Clearance w eGFR > 60 Random Glucose 106 Calcium 7.9 L Total Bilirubin 0.2 D AST 5 L ALT 11 L Alkaline Phosphatase 57 Total Protein 6.3 L Albumin 3.1 L Beta HCG, Quant 402510.3 06/25/17 17:27 RBC 4.10 MCV 88.2 MCHC 33.6 RDW 13.5 MPV 8.3 Neutrophils % 60.1 D Lymphocytes % 30.5 D Monocytes % 6.2 Eosinophils % 3.0 D Basophils % 0.2 <Susan Baker - Last Filed: 06/25/17 21:28> Medical Decision Making - Medical Decision Making 06/25/17 19:01 41 yo F at 6 wga , LMP 05/16/17 with h/o vertigo who presents with veritgo in setting of 2 years of chronic vertigo, BL ear pain, and left ear tinnitus. Symptoms worse with movement. States that she ran out of Meclizine 1 week ago, and reports decreased efficacy of meclizine within the past month. Denies N/V, F /C, CP, SOB, neck stiffness, [place], vision changes, hearing loss, abdominal pain, urinary complaints, lightheadedness, weakness, sensory changes. Does not follow with ENT, or PCP. Prior head CT 09/24/2016 with no acute pathology. Hemodynamically stable and physical exam noteable for L ear cerumen impaction, horizontal nystagmus,and absent neuro deficits. Differential includes BPPV, menieres disease, AOM. Patient with absent neuro findings or ataxia to suggest CVA/TIA. Vertigo most likely peripheral. Patient without vertigo at rest. ED Course: [facility] of [facility]igo in . CMP, BHCG UA Transvaginal U/S CBC: Unremarkable 06/25/17 19:04 Left ear cerumen manual extraction at bedside. Patient reports gradual resolution of ear pain, and slight improvment of vertigo. 06/25/17 19:08 Patient signed out to Dr. Walters. Transvaginal U/S, CBC, UA, BHCG pending. <Rony Calero - Last Filed: 06/25/17 18:26> *DC/Admit/Observation/Transfer - Discharge Dispostion Admit: No - Attestations Physician Attestion: 06/25/17 19:04 I attest to the information provided in this note. <Rony Calero - Last Filed: 06/25/17 18:26> <Susan Baker - Last Filed: 06/25/17 21:28> Diagnosis at time of Disposition: Vertigo Qualifiers: Weeks of gestation: 8 weeks Qualified Code(s): Z3A.08 - 8 weeks gestation of - Discharge Dispostion Disposition: HOME Condition at time of disposition: Stable - Referrals Referrals: Luis Green MD [Staff Physician] - Ese Zapien MD [Staff Physician] - Kb Miranda MD [Staff Physician] - - Patient Instructions Printed Discharge Instructions: DI for Benign Paroxysmal Positional Vertigo, DI for -- Discomforts and Remedies Additional Instructions: Please return to the emrgency department with any new or worsening symtpoms or concerns. Please follow up with primary care within one week. Please follow up with ENT, and establish care with EMERGENCY SERVICES DIRECTOR within 1-2 weeks. FOLLOW UP WITH THE ROLLER INSPECTOR AND MENDER /CHANNEL CEMENTER AT [address] [place] [address] Print Language: PAKISTANI
[2017-06-25 18:24] LABS: ALBUMIN 3.1 g/dl (3.4-5.0); ANION GAP 7 (8-16); BILIRUBIN,TOTAL 0.2 mg/dL (0.2-1.0); BLOOD UREA NITROGEN 11 mg/dL (7-18); CALCIUM 7.9 mg/dL (8.5-10.1); CHLORIDE 107 mmol/L (98-107); CO2 24 mmol/L (21-32); CREATININE 0.4 mg/dL (0.55-1.02); GLUCOSE,RANDOM 106 mg/dL (74-106); POTASSIUM 3.9 mmol/L (3.5-5.1); SGOT/AST 5 U/L (15-37); SGPT/ALT 11 U/L (12-78); SODIUM 138 mmol/L (136-145); TOT PROT 6.3 g/dl (6.4-8.2)
[2017-06-25 18:39] LABS: ALK PHOS 57 U/L (45-117)
[2017-06-25 21:39] VITALS: BP 110/65; PULSE 65
[2017-06-25] MEDS ORDERED: MECLIZINE HCL 25 MG TABLET (FP) PO ONE (21:51)
[2017-06-25] MEDS ORDERED: MECLIZINE HCL 25 MG TABLET (FP) ONE (21:53)
== END 2017-06-25 21:58 | disposition home or self-care (01) ==
LOC: JER 17:15
DX: O26.891 Other specified pregnancy related conditions, first trimester (principal); H81.13 Benign paroxysmal vertigo, bilateral; H61.22 Impacted cerumen, left ear; Z3A.01 Less than 8 weeks gestation of pregnancy
CPT/HCPCS: 36415; 76801-TC; 80053; 84702; 85025; 99283-25

== ENCOUNTER 2017-11-02 17:47 | Emergency (ER) | payer OTHER ==
--- NOTE | 2017-11-02 17:50 | PDOC ---
Attending Attestation - [facility] HPI: 11/02/17 18:55 The patient is a 41 year old female, 6 and half wks , , vaginal deliveries (.92, .94 and 04) with past medical history of vertigo presents to the emergency department complaining of dizziness. The patient reports an intermittent onset of dizziness with an episode on Saturday and Saturday, each lasting one hour. The patient reports she was waiting for the bus after leaving work today, when an episode of dizziness presented accompanied with 3 episodes of non-bilious non-bloody vomiting. The patient described the episode of dizziness as spinning sensation, different from usual episodes. Denies ear pain or throat pain. Denies water breaking. Endorses nausea. Denies hematemesis. Denies fever, chills, cough or a headache. Denies chest pain, shortness of breath or palpitations. Denies abdominal pain. Denies dysuria, hematuria, frequency or urgency to urinate. Denies vaginal bleeding or discharge. Allergies: NKDA Social history: Patient denies. Surgical history: Cholecystectomy: Gallstones PCP: none reported PRODUCTION MECHANIC: Antelmo vides. - Physicial Exam PE: 11/02/17 18:57 GENERAL: Awake, alert, and fully oriented, in no acute distress HEAD: No signs of trauma EYES: PERRLA, EOMI, sclera anicteric, conjunctiva clear ENT: Auricles normal inspection, hearing grossly normal, nares patent, oropharynx clear without exudates. Moist mucosa NECK: Normal ROM, supple, no lymphadenopathy, JVD, or masses LUNGS: Breath sounds equal, clear to auscultation bilaterally. No wheezes, and no crackles HEART: Regular rate and rhythm, normal S1 and S2, no murmurs, rubs or gallops ABDOMEN:(+) Gravid about the umbilical. Soft, nontender, normoactive bowel sounds. No guarding, no rebound. No masses EXTREMITIES: Normal range of motion, no edema. No clubbing or cyanosis. No cords, erythema, or tenderness NEUROLOGICAL: Cranial nerves II through XII grossly intact. Normal speech, normal gait SKIN: Warm, Dry, normal turgor, no rashes or lesions noted. - Medical Decision Making 11/02/17 18:57 Documentation prepared by Tala Fox, acting as medical imaging tech for Oliva Ruggiero DO. <Tala Fox - Last Filed: 11/02/17 18:55> - Resident Resident Name: John Arshad - ED Attending Attestation I have performed the following: I have examined & evaluated the patient, The case was reviewed & discussed with the resident, I agree w/resident's findings & plan, Exceptions are as noted - Medical Decision Making 11/02/17 17:50 I, Dr. Oliva Ruggiero, DO, attest that this document has been prepared under my direction and personally reviewed by me in its entirety. I further attest, that it accurately reflects all work, treatment, procedures and medical decision -making performed by me. 11/02/17 18:52 a/p: 41yo at 24 weeks gestation with dizziness this week assoc with nausea -neuro intact -no vertigo today -not drinking enough water this week with the heat -fhr on bedside ultrasound is 150 -no vaginal complaints, feeling baby moving, no loss of fluid or bleeding -will send labs, ua -ivf hydration, reglan for nausea -will monitor -once clear from ED will need to go to L&D 11/02/17 19:07 pt signed out to the oncoming ED physician pending labs and re-eval <Oliva Ruggiero - Last Filed: 11/02/17 19:08>
[2017-11-02 18:06] VITALS: BMI 24.7
[2017-11-02] MEDS ORDERED: METOCLOPRAMIDE HCL INJECTION 10 MG/2 ML VIAL IVPUSH ONE (18:16)
[2017-11-02] MEDS ORDERED: SODIUM CHLORIDE 0.9% 1000 ML INFUS.BAG IV ONE (18:16)
[2017-11-02] MEDS ORDERED: METOCLOPRAMIDE HCL INJECTION 10 MG/2 ML VIAL ONE (18:28)
[2017-11-02 18:42] LABS: BASO % 0.4 % (0-2.0); EOS % 3.1 % (0-4.5); HEMATOCRIT 30.5 % (32.4-45.2); HEMOGLOBIN 10.4 GM/dL (10.7-15.3); LYMPH % 20.9 % (8-40); MCH 30.8 pg (25.7-33.7); MCHC 34.3 g/dl (32.0-36.0); MEAN CELL VOLUME 89.9 fl (80-96); MEAN PLT VOLUME 8.9 fl (7.5-11.1); MONO % 6.7 % (3.8-10.2); NEUT % 68.9 % (42.8-82.8); PLATELET COUNT 200 K/MM3 (134-434); RBC 3.39 M/mm3 (3.60-5.2); RDW 13.4 % (11.6-15.6); WHITE BLOOD COUNT 8.3 K/mm3 (4.0-10.0)
[2017-11-02 19:09] LABS: ALBUMIN 2.6 g/dl (3.4-5.0); ALK PHOS 75 U/L (45-117); ANION GAP 9 (8-16); BILIRUBIN,TOTAL 0.1 mg/dL (0.2-1.0); BLOOD UREA NITROGEN 7 mg/dL (7-18); CALCIUM 7.8 mg/dL (8.5-10.1); CHLORIDE 107 mmol/L (98-107); CO2 24 mmol/L (21-32); CREATININE 0.4 mg/dL (0.55-1.02); GLUCOSE,RANDOM 79 mg/dL (74-106); LIPASE 169 U/L (73-393); MAGNESIUM 2.1 mg/dL (1.8-2.4); SGOT/AST 10 U/L (15-37); SGPT/ALT 18 U/L (12-78); SODIUM 140 mmol/L (136-145); TOT PROT 6.2 g/dl (6.4-8.2)
[2017-11-02 20:09] LABS: URINE APPEARANCE CLEAR; URINE BILIRUBIN NEGATIVE (<2.0 mg/dL); URINE COLOR STRAW; URINE GLUCOSE (UA) NEGATIVE (NEGATIVE); URINE KETONE NEGATIVE (NEGATIVE); URINE LEUK ESTERASE NEGATIVE (NEGATIVE); URINE NITRITE NEGATIVE (NEGATIVE); URINE UROBILINOGEN NEGATIVE mg/dL (0.2-1.0)
[2017-11-02 20:11] LABS: URINE PROTEIN 1+ (NEGATIVE)
[2017-11-02 20:13] LABS: EPI CELLS RARE /HPF (FEW); URINE BACTERIA MANY /hpf (NONE SEEN); URINE HYALINE CAST 1 /lpf
[2017-11-02] MEDS ORDERED: CEPHALEXIN MONOHYDRATE 500 MG CAPSULE (UD) PO ONE (20:17)
[2017-11-02] MEDS ORDERED: CEPHALEXIN MONOHYDRATE 500 MG CAPSULE (UD) ONE (20:21)
--- NOTE | 2017-11-02 20:33 | PDOC ---
*Physical Exam - Vital Signs Last Vital Signs Temp Pulse Resp BP Pulse Ox 97.9 F 70 18 104/63 100 11/02/17 18:04 11/02/17 19:14 11/02/17 19:14 11/02/17 19:14 11/02/17 19:14 ED Treatment Course - LABORATORY CBC & Chemistry Diagram: 11/02/17 18:30 11/02/17 18:30 - ADDITIONAL ORDERS Additional order review: Laboratory Results 11/02/17 11/02/17 18:30 18:26 Sodium 140 Potassium 4.0 Chloride 107 Carbon Dioxide 24 Anion Gap 9 BUN 7 Creatinine 0.4 L Creat Clearance w eGFR > 60 Random Glucose 79 Calcium 7.8 L Magnesium 2.1 Total Bilirubin 0.1 L AST 10 L ALT 18 Alkaline Phosphatase 75 Total Protein 6.2 L Albumin 2.6 L Lipase 169 Urine Color Straw Urine Appearance Clear Urine pH 7.0 Ur Specific Kimberly 1.005 Urine Protein 1+ H Urine Glucose (UA) Negative Urine Ketones Negative Urine Blood 1+ H Urine Nitrite Negative Urine Bilirubin Negative Urine Urobilinogen Negative Ur Leukocyte Esterase Negative Urine WBC (Auto) 2 Urine RBC (Auto) 2 Ur Epithelial Cells Rare Urine Bacteria Many Hyaline Casts 1 11/02/17 18:30 RBC 3.39 L MCV 89.9 MCHC 34.3 RDW 13.4 MPV 8.9 Neutrophils % 68.9 Lymphocytes % 20.9 D Monocytes % 6.7 Eosinophils % 3.1 Basophils % 0.4 - Medications Given in the ED: ED Medications Discontinued Medications Generic Name Dose Route Start Last Admin Trade Name Delvin PRN Reason Stop Dose Admin Cephalexin HCl 500 mg 11/02/17 20:17 11/02/17 20:30 Keflex - PO 11/02/17 20:18 500 mg ONCE ONE Administration Metoclopramide HCl 10 mg 11/02/17 18:16 11/02/17 18:51 Reglan Injection - IVPUSH 11/02/17 18:17 10 mg ONCE ONE Administration Sodium Chloride 1,000 ml 11/02/17 18:16 11/02/17 18:51 Normal Saline - IV 11/02/17 18:17 1,000 ml ONCE ONE Administration Medical Decision Making - Medical Decision Making 11/02/17 20:32 Pt has bacteria in her urine. She is feeling better; labs are normal. Pt will be sent to L+D as she is 7 months and she will require monitoring before they discharge her. *DC/Admit/Observation/Transfer Diagnosis at time of Disposition: Abdominal pain affecting - Discharge Dispostion Disposition: HOME Condition at time of disposition: Stable - Prescriptions Prescriptions: Cephalexin [Keflex] 250 mg PO QID #28 capsule - Referrals - Patient Instructions Additional Instructions: DISCHARGE TO HOME MAINTAIN APPOINTMENT ON 11/18/17 AT 9AM REST AT HOME DRINK PLENTY OF FLUIDS DIET TOLERATED CONTINUE ALL HOME MEDICATIONS DIRECTED RETURN TO HOSPITAL: CONTRACTIONS EVERY 3 TO 5 MINUTES DECREASED MOVEMENT HEAVY VAGINAL BLEEDING RUPTURE OF MEMBRANES OR WATER BREAKS - Post Discharge Activity
[2017-11-02 22:17] VITALS: BP 112/57; PULSE 64; TEMP 98.4
--- NOTE | 2017-11-03 10:08 | EKG ---
Test Reason : Blood Pressure : / mmHG Vent. Rate : 070 BPM Atrial Rate : 070 BPM P-R Int : 156 ms QRS Dur : 072 ms QT Int : 416 ms P-R-T Axes : 045 043 024 degrees QTc Int : 449 ms POOR DATA QUALITY, INTERPRETATION MAY BE ADVERSELY AFFECTED NORMAL SINUS RHYTHM NORMAL ECG WHEN COMPARED WITH ECG OF 19-JUN-2017 14:38, NO SIGNIFICANT CHANGE WAS FOUND Confirmed by EVENS GUTIERRES, BRIAN ([id number]) on 11/03/2017 10:08:29 AM Referred By: Confirmed By:BRIAN HORNER MD
== END 2017-11-02 22:00 | disposition home or self-care (01) ==
LOC: JER 17:47
PROC: 3E033GC Introduction of Other Therapeutic Substance into Peripheral Vein, Percutaneous Approach (ICD-10-PCS; principal; 2017-11-02)
DX: O26.892 Other specified pregnancy related conditions, second trimester (principal); R10.30 Lower abdominal pain, unspecified; Z3A.24 24 weeks gestation of pregnancy
CPT/HCPCS: 36415; 80053; 81003; 81015; 83690; 83735; 85025; 87491; 87591; 93005; 93010; 96374; 99283-25; J7030

== ENCOUNTER 2017-11-09 15:32 | Emergency (ER) | payer OTHER ==
[2017-11-09 15:40] VITALS: BMI 24.1
[2017-11-09] MEDS ORDERED: ONDANSETRON *ODT* 4 MG TABLET SL ONE (16:50)
[2017-11-09] MEDS ORDERED: MECLIZINE HCL 25 MG TABLET (FP) PO ONE (16:50)
--- NOTE | 2017-11-09 17:02 | PDOC ---
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 She states that she's had 3 episodes over the past week but denies any dysphasia and diplopia. She denies fever, chills, CP, SOB, numbness, tingling, weakness, dysuria, vaginal bleeding, and cramping. She admits to nausea and vomiting 3 times over the past week during these episodes, NBNB. Past History - Past Medical History Allergies/Adverse Reactions: Allergies Allergy/AdvReac Type Severity Reaction Status Date / Time No Known Allergies Allergy Verified 11/09/17 15:40 Home Medications: Ambulatory Orders Vit 93/Iron Fum/Folic [ Formula Tablet] 1 each PO DAILY COPD: No DVT: No Diabetes: No - Surgical History Abdominal Surgery: Yes Cholecystectomy: Yes (GALLSTONES.) - Reproductive History (#): 4 Para: 3 Cervical CA: No Dysfunctional Uterine Bleeding: No Ectopic : No Endometrial CA: No Therapeutic (s) & number: No Tubal Ligation: No - Immunization History Immunization Up to Date: Yes - Suicide/Smoking/Psychosocial Hx Smoking History: Never smoked Have you smoked in the past 12 months: No Number of Cigarettes Smoked Daily: 0 Hx Alcohol Use: No Drug/Substance Use Hx: No Substance Use Type: None Review of Systems - Review of Systems Able to Perform ROS?: Yes Comments:: 11/09/17 17:02 GENERAL/CONSTITUTIONAL: No fever or chills. No weakness. HEAD, EYES, EARS, NOSE AND THROAT: No change in vision. No ear pain or discharge. No sore throat. CARDIOVASCULAR: No chest pain, palpitations, or lightheadedness. RESPIRATORY: No cough, wheezing, shortness of breath, or hemoptysis. GASTROINTESTINAL: Positive for nausea and vomiting. No diarrhea, constipation, or abdominal pain. GENITOURINARY: No dysuria, frequency, hematuria, or change in urination. MUSCULOSKELETAL: No joint or muscle swelling or pain. No neck or back pain. SKIN: No rash or lesions. NEUROLOGIC: Positive for vertiginous dizziness. No headache, numbness, tingling , weakness, loss of consciousness, or change in strength/sensation. ENDOCRINE: No increased thirst. No abnormal weight change. HEMATOLOGIC/LYMPHATIC: No anemia, easy bleeding, or history of blood clots. ALLERGIC/IMMUNOLOGIC: No hives or skin allergy. Is the patient limited Chilean proficient: No *Physical Exam - Vital Signs Last Vital Signs Temp Pulse Resp BP Pulse Ox 98.2 F 85 18 103/52 99 11/09/17 15:36 11/09/17 15:36 11/09/17 15:36 11/09/17 15:36 11/09/17 15:36 - Physical Exam Comments: 11/09/17 17:03 GENERAL: Well developed, well nourished. Awake and alert. No acute distress. HEENT: Normocephalic, atraumatic. Hearing grossly normal. Moist mucous membranes. PERRLA, EOMI. No conjunctival pallor. Sclera are non-icteric. Oropharynx is clear. NECK: Supple. Full ROM. No JVD. CARDIOVASCULAR: Regular rate and rhythm. No murmurs, rubs, or gallops. PULMONARY: No evidence of respiratory distress. Lungs clear to auscultation bilaterally. No wheezing, rales or rhonchi. ABDOMINAL: Soft. Non-tender. Non-distended. No rebound or guarding. GENITOURINARY: No CVA tenderness bilaterally. MUSCULOSKELETAL: Normal range of motion at all joints. No bony deformities or tenderness. EXTREMITIES: No cyanosis. No clubbing. No edema. No calf tenderness or swelling. SKIN: Warm and dry. Normal capillary refill. No rashes. No jaundice. NEUROLOGICAL: Alert, awake, appropriate. Cranial nerves 2-12 intact. No deficits to light touch and temperature in face, upper extremities and lower extremities. 5/5 strength in deltoids, biceps, triceps, quadriceps, hamstrings, and gastrocnemius. Normal speech. Gait is normal without ataxia. PSYCHIATRIC: Cooperative. Good eye contact. Appropriate mood and affect. ED Treatment Course - LABORATORY CBC & Chemistry Diagram: 11/09/17 17:51 11/09/17 18:06 Medical Decision Making - Medical Decision Making 11/09/17 17:03 The patient is a 41F with a PMH of vertigo who presents with vertiginous dizziness accompanied by nausea and vomiting. Will treat nausea and dizziness. Pt was concerned about her baby and I reassured her that her baby was not affected by the vertigo. Pt understands. I have also sent the patient a prescription for meclizine and zofran. 11/09/17 18:47 CBC and CMP WNL. RUQ U/S Pending. 11/09/17 19:03 Pt signed out to Dr. Ye.
[2017-11-09] MEDS ORDERED: MECLIZINE HCL 25 MG TABLET (FP) ONE (17:11)
--- NOTE | 2017-11-09 17:12 | PDOC ---
Attending Attestation - HPI HPI: 11/09/17 17:30 The patient is a 41 year old approximately 30 weeks female (), with a significant past medical history of vertigo, who presents to the emergency department with recurrent dizziness, nausea, and vomiting. Patient reports her symptoms are similar to her previous vertigo episodes, but she is concerned for her baby, which prompted her visit to the ED today. She states that she's had 3 episodes of dizziness over the past week, but denies any dysphagia and diplopia. She denies any fever, chills, cough, headache, numbness , or tingling. She denies any chest pain, shortness of breath, diaphoresis, or palpitations. She denies any dysuria, hematuria, frequency, urgency, vaginal bleeding, cramping, or discharge. She reports RUQ abdominal discomfort, nausea and 4 episodes of nonbloody/nonbilious vomiting today. She rates her pain a 5/ 10 and repots its nonradiating in nature. She denies any recent travel or sick contacts. Allergies: NKDA Past Surgical History: Social History: Non smoker. No ETOH or recreational drug use. OB: At [address] [place] [address]. - Physicial Exam PE: 11/09/17 17:31 General: Well appearing, awake and alert, NAD. HEENT: NCAT, PERRL, EOMI, clear conjunctiva, anicteric, moist mucus membranes, clear oropharynx, no oral lesions.. Airway patent, normal phonation Neck: neck supple, FROM, no JVD, LAD or masses Lungs: CTAB, normal and even respirations, no respiratory distress Heart: RRR, no murmurs, 2+ peripheral pulses throughout, no peripheral edema Abdomen: Gravid. Mild RUQ tenderness. Soft, ND, no peritoneal signs. No CVAT. Negative Dawson's. Back: nontender, normal inspection and ROM MSK: no edema, GURROLA x4, ROM intact. No clubbing or cyanosis. normal bulk and tone. Neuro: Alert, oriented to person time and place. CN II-XII grossly intact. Strength prox and distally 5/5 throughout. Sensation grossly intact to light touch. GURROLA x4. No cerebellar signs, no dysmetria, bilateral finger to nose and heel to chatman equal and symmetric. Skin: warm and well perfused, cap refill <2 sec, normal color - Medical Decision Making 11/09/17 17:31 Documentation prepared by Delma Bryant, acting as medical liaison for No Nguyen MD. <Delma Bryant - Last Filed: 11/09/17 18:02> - Resident Resident Name: Piyush Aden - ED Attending Attestation I have performed the following: I have examined & evaluated the patient, The case was reviewed & discussed with the resident, I agree w/resident's findings & plan - Medical Decision Making 11/09/17 17:12 MDM: Magdalene 41 YOF currently at at ~6 months gestation by dates presenting with recurrent vertigo and dizziness a/w nausea and vomiting and RUQ pain x this morning, similar episodes of vertigo previously. Last seen in ED 11/02/17 with similar sx, neurologically well, symptoms controlled, treated for bacteruria in with Keflex course (currently completing) and sent to OB for NST. no VB, syncope, back pain, cp or sob. no meds taken. Vital signs reviewed, wnl. DDx. HELPS, preeclampsia, cholestasis of , cholecystitis, cholelithiasis, hepatitis, pancreatitis, metabolic derangements, electrolyte abnormalities. doubt pyelo, on keflex already. Already treated for asymptomatic UTI of with keflex. Defer UA testing for now. Interventions: meclizine and zofran ODT, reglan. tylenol, IVF. VS reviewed, wnl, no hypertension. Remains well appearing, nontoxic, no focal neuro changes. No VB or AP or concerns for emergent pathology in . Most likely vertigo sx similar to prior, hydration reglan/tylenol/zofran given, reassurance provided. due to RUQ pain in setting of (no CVAT, so doubt pyelo), r/o cholestasis vs biliary/stone pathology, pending RUQ sono. LFts and lipase wnl, reassuring. remainder of labs CBC and basic panel/lytes/cr normal, reassuring as well. abdomen nonperitoneal. Prior notes also reviewed. No urine culture from 11/02/17, but UA with bacteria and rxd course of keflex. NST with L&D following workup. s/o overnight attending Dr. Montoya pending sono, then transfer to L&D. follows with 2 [facility]. 11/09/17 18:39 11/09/17 18:41 11/09/17 18:44 11/09/17 18:44 <No Nguyen - Last Filed: 11/09/17 18:45>
[2017-11-09] MEDS ORDERED: METOCLOPRAMIDE HCL INJECTION 10 MG/2 ML VIAL IVPUSH ONE (18:02)
[2017-11-09] MEDS ORDERED: SODIUM CHLORIDE 0.9% 500 ML INFUS.BAG IV ONE (18:02)
[2017-11-09] MEDS ORDERED: ACETAMINOPHEN 325 MG TABLET (FP) PO ONE (18:02)
[2017-11-09] MEDS ORDERED: ACETAMINOPHEN 325 MG TABLET (FP) ONE (18:12)
[2017-11-09] MEDS ORDERED: METOCLOPRAMIDE HCL INJECTION 10 MG/2 ML VIAL ONE (18:12)
[2017-11-09 18:19] LABS: BASO % 0.3 % (0-2.0); EOS % 2.2 % (0-4.5); HEMATOCRIT 32.1 % (32.4-45.2); HEMOGLOBIN 10.9 GM/dL (10.7-15.3); LYMPH % 19.7 % (8-40); MCH 30.5 pg (25.7-33.7); MEAN CELL VOLUME 89.9 fl (80-96); MEAN PLT VOLUME 9.2 fl (7.5-11.1); MONO % 5.6 % (3.8-10.2); NEUT % 72.2 % (42.8-82.8); PLATELET COUNT 213 K/MM3 (134-434); RBC 3.57 M/mm3 (3.60-5.2); RDW 13.3 % (11.6-15.6); WHITE BLOOD COUNT 9.7 K/mm3 (4.0-10.0)
[2017-11-09 18:39] LABS: ALBUMIN 2.6 g/dl (3.4-5.0); ALK PHOS 81 U/L (45-117); ANION GAP 9 (8-16); BILIRUBIN,TOTAL 0.2 mg/dL (0.2-1.0); BLOOD UREA NITROGEN 7 mg/dL (7-18); CHLORIDE 107 mmol/L (98-107); CO2 23 mmol/L (21-32); CREATININE 0.3 mg/dL (0.55-1.02); GLUCOSE,RANDOM 101 mg/dL (74-106); POTASSIUM 3.9 mmol/L (3.5-5.1); SGOT/AST 16 U/L (15-37); SGPT/ALT 25 U/L (12-78); SODIUM 139 mmol/L (136-145); TOT PROT 6.1 g/dl (6.4-8.2)
--- NOTE | 2017-11-09 19:35 | PDOC ---
History of Present Illness - General Chief Complaint: Lightheaded Stated Complaint: DIZZINESS (6 MONTHS ) Time Seen by Provider: 11/09/17 16:32 History Source: Patient Past History - Past Medical History Allergies/Adverse Reactions: Allergies Allergy/AdvReac Type Severity Reaction Status Date / Time No Known Allergies Allergy Verified 11/09/17 15:40 Home Medications: Ambulatory Orders Vit 93/Iron Fum/Folic [ Formula Tablet] 1 each PO DAILY COPD: No DVT: No Diabetes: No - Surgical History Abdominal Surgery: Yes Cholecystectomy: Yes (GALLSTONES.) - Reproductive History (#): 4 Para: 3 Cervical CA: No Dysfunctional Uterine Bleeding: No Ectopic : No Endometrial CA: No Therapeutic (s) & number: No Tubal Ligation: No - Immunization History Immunization Up to Date: Yes - Suicide/Smoking/Psychosocial Hx Smoking History: Never smoked Have you smoked in the past 12 months: No Number of Cigarettes Smoked Daily: 0 Hx Alcohol Use: No Drug/Substance Use Hx: No Substance Use Type: None Review of Systems - Review of Systems Is the patient limited Bulgarian proficient: No *Physical Exam - Vital Signs Last Vital Signs Temp Pulse Resp BP Pulse Ox 98.5 F 68 16 108/53 98 11/09/17 18:31 11/09/17 18:31 11/09/17 18:31 11/09/17 18:31 11/09/17 18:31 ED Treatment Course - LABORATORY CBC & Chemistry Diagram: 11/09/17 17:51 11/09/17 18:06 - ADDITIONAL ORDERS Additional order review: Laboratory Results 11/09/17 11/09/17 18:06 18:06 Sodium 139 Potassium 3.9 Chloride 107 Carbon Dioxide 23 Anion Gap 9 BUN 7 Creatinine 0.3 L Creat Clearance w eGFR > 60 Random Glucose 101 Calcium 8.0 L Total Bilirubin 0.2 AST 16 ALT 25 Alkaline Phosphatase 81 Total Protein 6.1 L Albumin 2.6 L Lipase 134 11/09/17 17:51 RBC 3.57 L MCV 89.9 MCHC 34.0 RDW 13.3 MPV 9.2 Neutrophils % 72.2 Lymphocytes % 19.7 Monocytes % 5.6 Eosinophils % 2.2 Basophils % 0.3 - Medications Given in the ED: ED Medications Discontinued Medications Generic Name Dose Route Start Last Admin Trade Name Freq PRN Reason Stop Dose Admin Acetaminophen 650 mg 07/14/18 18:02 11/09/17 18:20 Tylenol - PO 11/09/17 18:03 650 mg ONCE ONE Administration Meclizine HCl 25 mg 11/09/17 16:50 11/09/17 17:31 Antivert - PO 11/09/17 16:51 25 mg ONCE ONE Administration Metoclopramide HCl 10 mg 11/09/17 18:02 11/09/17 18:20 Reglan Injection - IVPUSH 11/09/17 18:03 10 mg ONCE ONE Administration Ondansetron HCl 4 mg 11/09/17 16:50 11/09/17 17:14 Zofran Odt - SL 11/09/17 16:51 4 mg ONCE ONE Administration Sodium Chloride 1,000 ml 11/09/17 18:02 11/09/17 18:20 Normal Saline - IV 11/09/17 18:03 1,000 ml ONCE ONE Administration Medical Decision Making - Medical Decision Making 11/09/17 19:35 Patient signed out by Dr. Aden (Resident) under the care of Dr. Nguyen (Attending) 41 year old approximately 30 weeks female (), with a significant past medical history of vertigo, who presents to the emergency department with recurrent dizziness, nausea, and vomiting.
[2017-11-09 22:07] VITALS: BP 100/59; PULSE 64; TEMP 98.6
== END 2017-11-09 22:04 | disposition home or self-care (01) ==
LOC: JER 15:32
PROC: 3E033GC Introduction of Other Therapeutic Substance into Peripheral Vein, Percutaneous Approach (ICD-10-PCS; principal; 2017-11-09)
DX: R42 Dizziness and giddiness (principal); R11.2 Nausea with vomiting, unspecified; Z3A.24 24 weeks gestation of pregnancy
CPT/HCPCS: 36415; 76705-TC; 80053; 83690; 85025; 96374; 99283-25; Q0162

== ENCOUNTER 2018-02-03 08:35 | Inpatient (IN) | payer OTHER ==
[2018-02-03] MEDS ORDERED: AMPICILLIN - 2 GM in SODIUM CHLORIDE 100 ML IVPB ONE (10:00)
[2018-02-03] MEDS ORDERED: DEXTROSE 5%-LACTATED RINGERS 1,000 ML IV SCH (10:35)
[2018-02-03] MEDS ORDERED: AMPICILLIN SODIUM 2 GM VIAL ONE (10:36)
[2018-02-03 11:12] VITALS: BMI 26.5
[2018-02-03 11:18] LABS: BASO % 0.4 % (0-2.0); EOS % 2.4 % (0-4.5); HEMATOCRIT 33.7 % (32.4-45.2); HEMOGLOBIN 11.3 GM/dL (10.7-15.3); LYMPH % 21.6 % (8-40); MCH 30.3 pg (25.7-33.7); MCHC 33.7 g/dl (32.0-36.0); MEAN PLT VOLUME 10.6 fl (7.5-11.1); MONO % 7.1 % (3.8-10.2); NEUT % 68.5 % (42.8-82.8); PLATELET COUNT 159 K/MM3 (134-434); RBC 3.74 M/mm3 (3.60-5.2); RDW 13.6 % (11.6-15.6)
[2018-02-03 11:35] LABS: INR 0.87 (0.83-1.09); PROTHROMBIN TIME (PATIENT) 10.2 SEC (9.7-13.0)
[2018-02-03 11:38] LABS: ACTIVATED PTT 26.6 SECONDS (25.2-36.5)
--- NOTE | 2018-02-03 11:59 | HP ---
Past Medical History - Admission Chief Complaint: Contractions every 10 minutes History of Present Illness: 42yo @ 39.6wks here for ctx q10 mins. No VB/LOF. +FM Preg c/b AMA. 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: No: Alzheimer's, CVA, Dementia, Migraine, Multiple Sclerosis, Peripheral Neuropathy, Parkinson's, Seizure, Syncope, TIA, Vertigo, Other Cardiovascular: No: AFIB, Aneurysm, Aortic Insufficiency, Aortic Stenosis, CAD, CHF, Deep Vein Thrombosis, HTN, Hyperlipdemia, CT, Mitral Insufficiency, Mitral Stenosis, Murmur, Pulmonary Hypertension, Other Pulmonary: No: Asthma, Bronchitis, Cancer, COPD, O2 Dependent, Pneumonia, Previously Intubated, Pulmonary Embolus, Pulmonary Fibrosis, Sleep Apnea, Other Gastrointestinal: No: Ascites, Cancer, Constipation, Crohn's Disease, Diverticulitis, Diverticulosis, Esophageal Varices, Gastritis, GERD, GI Bleed, Hemorrhoids, Hiatal Hernia, Inflamatory Bowel Disease, Irritable Bowel Disease, Pancreatitis, Peptic Ulcer Disease, Ulcerative Colitis, Other Hepatobiliary: No: Cirrhosis, Cholelithiasis, Cholecystitis, Choledocholithiasis , Hepatitis A, Hepatitis B, Hepatitis C, Other Renal/: No: Renal Failure, Renal Inusuff, BPH, Cancer, Hematuria, Hemodialysis , Neurogenic Bladder, Renal Calculi, UTI, Other Reproductive: No: Ectopic , Endometriosis, Fibroids, PID, Polycystic Ovary Syndrome, Postmenopausal, Other ...: 4 ...Para: 3 ...Term: 3 ...: 0 ...Spon : 0 ...Induced : 0 ...Multiple Gestation: 0 ...LMP: 04/12/17 ... Weeks Gestation by Dates: 42.3 ...EDC by Dates: 01/17/18 ...EDC by Sono: 02/04/18 Heme/Onc: No: Anemia, B12 Deficiency, Bleeding Disorder, Cancer, Current Chemotherapy, Current Radiation Therapy, Hemochromatosis, Hypercoaguable State, Myeloproliferative Synd, Sickle Cell Disease, Sickle Cell Trait, Thrombocytopenia, Other Infectious Disease: No: AIDS, C-Diff, Herpes Zoster, HIV, MRSA, STD's, Tuberculosis, VREF, Other Psych: No: Addictions, Anxiety, Bipolar, Depression, Panic, Psychosis, Schizophrenia, Other Musculoskeletal: No: Bursitis, Chronic low back pain, Hemiparesis, Hemiplegia, Osteoarthritis, Paraplegia, Other Rheumatology: No: Fibromyalgia, Gout, Lupus, Rheumatoid Arthritis, Sarcoidosis, Vasculitis, Other ENT: No: Allergic Rhinitis, Sinusitis, Other Endocrine: No: Hamer's Disease, Horace's Disease, Diabetes Insipidus, Diabetes Mellitus, Hyperparathyroidism, Hyperthyroidism, Hypothyroidism, Osteopenia, SIADH, Other Dermatology: No: Basal Cell, Cellulitis, Eczema, Melanoma, Psoriasis, Squamous Cell, Other - Past Surgical History Past Surgical History: No: None, AAA Repair, AICD, Amputation, Appendectomy, Arthrosocopy, AV Fistula/Graft, Bariatric Surgery, Breast Biopsy, Bypass, CABG, Carotid Endarterectomy, Cataract Removal, Cholecystectomy, Colectomy, Colonoscopy, Colostomy, Craniotomy, , Cystectomy, Hernia Repair, Hysterectomy, Ileal Conduit, Ileosotomy, Joint Replacement, Kidney Transplant, Laminectomy, Liver Transplant, Mastectomy, Nephrectomy, Oopherectomy, Orchiectomy, Permanent Pacemaker, Prostatectomy, Splenectomy, Stent, Thoracotomy , TURP, Tonsillectomy, Tubal Ligation, Upper Endoscopy, Valve Replacement, Vasectomy, Vein Stripping/Ligation Hx Myomectomy: No Hx Transabdominal Cerclage: No - Smoking History Smoking history: Never smoked Have you smoked in the past 12 months: No Aproximately how many cigarettes per day: 0 - Alcohol/Substance Use Hx Alcohol Use: No History of Substance Use: reports: None - Social History Usual Living Arrangement: Yes: Alone History of Recent Travel: No Home Medications - Allergies Allergies/Adverse Reactions: Allergies Allergy/AdvReac Type Severity Reaction Status Date / Time No Known Allergies Allergy Verified 02/03/18 10:53 - Home Medications Home Medications: Ambulatory Orders Vit 93/Iron Fum/Folic [ Formula Tablet] 1 each PO DAILY Ferrous Sulfate [Feosol] 325 mg PO DAILY 02/03/18 Review of Systems - Review of Systems Constitutional: denies: No Symptoms, Chills, Diaphoresis, Fever, Lethargy, Loss of Appetite, Malaise, Night Sweats, Unintentional Wgt. Loss, Weakness, Other Eyes: denies: No Symptoms, Blind Spots, Blurred Vision, Double Vision, Eye Pain , Floaters, Photophobia, Recent Change in Vision, Other HENT: denies: No Symptoms, Difficult Swallowing, Ear Discharge, Ear Pain, Epistaxis, Gingival Bleeding, Hearing Loss, Mouth Swelling, Nasal Congestion, Ocular Prosthesis, Throat Pain, Toothache, Ringing in Ears, Other Neck: denies: No Symptoms, Decreased ROM, Lumps, Pain on Movement, Stiffness, Swollen Glands, Tenderness, Other Cardiovascular: denies: No Symptoms, Chest Pain, Edema, Palpitations, Shortness of Breath, Other Respiratory: denies: No Symptoms, Cough, Exercise Intolerance, Hemoptysis, Orthopnea, PND, Snoring, SOB, SOB on Exertion, Wheezing, Other Gastrointestinal: denies: No Symptoms, Abdominal Pain, Bloating, Constipation, Diarrhea, Dysphagia, Indigestion, Melena, Nausea, Rectal Bleeding, Vomiting, Vomiting Blood, Other Genitourinary: denies: No Symptoms, Burning, Discharge, Dysuria, Flank Pain, Frequency, Hematuria, Incontinence, Lesions, Menses, Pain, Testicular Mass, Testicular Pain, Testicular Swelling, Urgency, Vaginal Bleeding, Other Musculoskeletal: denies: No Symptoms, Back Pain, Crepitus, Decreased ROM, Extremity Pain, Joint Pain, Joint Swelling, Muscle Pain, Muscle Cramps, Muscle Weakness, Other Integumentary: denies: No Symptoms, Blister, Bruising, Change in Color, Eczema, Erythema, Incision, Lesions, Lump, Pallor, Pruritis, Rash, Wound, Other Neurological: denies: No Symptoms, Change in LOC, Change in Speech, Confusion, Dizziness, Headache, Incoordination, Numbness, Parasthesia, Pre-Existing Deficit , Seizure, Syncope, Tremors, Unsteady Gait, Weakness, Other Endocrine: denies: No Symptoms, Excessive Sweating, Flushing, Increased Hunger, Increased Thirst, Intolerance to Cold, Intolerance to Heat, Unexplained Weight Gain, Unexplained Weight Loss, Other Hematology/Lymphatic: denies: No Symptoms, Easily Bruised, Excessive Bleeding, Swollen Glands, Other Psychiatric: denies: No Symptoms, Altered Sleep Pattern, Anxiety, Depression, Hallucinations, Panic, Paranoia, Suicidal, Other Physical Exam - Maternity Vital Signs: Vital Signs Temperature 98.3 F 02/03/18 10:59 Pulse Rate 63 02/03/18 11:00 Respiratory Rate 18 02/03/18 11:00 Blood Pressure 121/66 02/03/18 11:00 O2 Sat by Pulse Oximetry (%) Constitutional: Yes: Well Nourished, No Distress, Calm Eyes: Yes: WNL, Conjunctiva Clear, EOM Intact HENT: Yes: WNL - Abdominal Exam/OB Number of Fetuses: Single Presentation: Vertex Contractions: Yes Regularity: Irregular Intensity: Mild Monitor Mode: External Heart Rate (range): 130, moderate, variable decelerations to the 70's Category: II Accelerations: Non-Uniform Decelerations: Variable - Vaginal Exam/OB Vaginal Bleediing: No Speculum Exam: No Dilatation (cm): FT Effacement (%): 50 Amniotic Membrane Status: Intact Presentation: Vertex/Position Station: -3 - Physical Exam Edema: Yes ...Motor Strength: WNL Psychiatric: Yes: WNL - Labs Lab Results: CBC, BMP 02/03/18 10:53 Problem List - Problems (1) Uterine contractions Code(s): HPE1870 - (2) Uterine contractions Code(s): CPQ3972 - Assessment/Plan 42yo @ 39.6wks here for irregular contractions. Admit to L&D NPO, IVFs Cat II with intermittent variable contractions Will induce with Alexander bulb, not candidate for prostaglandins with this Cat II tracing Discussed with patient that in light of Cat II tracing, limited IOL methods and potential for Delivery Anticipate delivery Vanessa Laird MD
[2018-02-03 12:00] LABS: ANION GAP 8 MMOL/L (8-16); BLOOD UREA NITROGEN 10 mg/dL (7-18); CALCIUM 8.3 mg/dL (8.5-10.1); CHLORIDE 110 mmol/L (98-107); CO2 20 mmol/L (21-32); CREATININE 0.4 mg/dL (0.55-1.3); GLUCOSE,RANDOM 71 mg/dL (74-106); POTASSIUM 4.1 mmol/L (3.5-5.1); SODIUM 138 mmol/L (136-145)
[2018-02-03] MEDS: AMPICILLIN - 1 GM in SODIUM CHLORIDE 100 ML IVPB SCH ×2 (14:00→19:15)
--- NOTE | 2018-02-03 14:03 | PN ---
Progress Note, Labor Vaginal Exam #1 Labor Exam Date: 02/03/18 Labor Exam Time: 14:01 Heart Rate (range): 130, moderate, intermittent variable decelerations Dilatation: 4 Effacement (%): 70 Amniotic Membrane Status: Ruptured Presentation: Vertex/Position Station: -3 (Cat II tracing with intermittent variable decelerations. Good variability throughout. Continue IVFs, repositioning Making progress. If tracing worsens, consider amnioinfusion. Anticipate Vanessa Laird MD)
[2018-02-03] MEDS ORDERED: OXYTOCIN 30 UNITS in 0.9% NS 30 UNIT/500 ML INFUS.BAG IVPB ONE (14:08)
[2018-02-03] MEDS ORDERED: OXYTOCIN 20 UNITS in 0.9% NS 20 UNIT/1,000 ML INFUS.BAG IV ONE ×2 (14:26→19:05)
[2018-02-03] MEDS ORDERED: BUTORPHANOL TARTRATE 1 MG/ML VIAL ONE (15:28)
[2018-02-03] MEDS ORDERED: PROMETHAZINE HCL 25 MG/1 ML VIAL ONE (15:28)
[2018-02-03] MEDS ORDERED: BUTORPHANOL TARTRATE 1 MG/ML VIAL IVPB ONE (16:00)
[2018-02-03] MEDS ORDERED: PROMETHAZINE HCL 25 MG/1 ML VIAL IVPB ONE (16:00)
[2018-02-03] MEDS: OXYTOCIN 20 UNITS in 0.9% NS 20 UNIT/1,000 ML INFUS.BAG IV SCH (17:15)
[2018-02-03] MEDS ORDERED: WITCH HAZEL 50% (TUCKS) 40 PAD/JAR PAD TP PRN (17:24)
[2018-02-03] MEDS ORDERED: BENZOCAINE 28 GM HEMORRHOIDAL OINTMENT TP PRN (17:24)
[2018-02-03] MEDS ORDERED: BISACODYL 10 MG SUPP.RECT RC PRN (17:24)
[2018-02-03] MEDS ORDERED: METHYLERGONOVINE MALEATE 0.2 MG/1 ML AMP IM PRN (17:24)
[2018-02-03] MEDS ORDERED: BENZOCAINE 20% 57 GM BOTTLE TP PRN (17:24)
--- NOTE | 2018-02-03 17:29 | PN ---
Progress Note (short form) - Note Progress Note: 240 pm took over management cx 4 cm 70 vx -3, variable decel with good recovery, good BTB .,
[2018-02-03] MEDS ORDERED: D5W-LR W/ 20 UNITS OXYTOCIN 20 UNIT/1,000 ML INFUS.BAG IV SCH (17:30)
--- NOTE | 2018-02-03 17:30 | PN ---
Progress Note (short form) - Note Progress Note: 325 pm cx 7 cm 80 vx -1 mr, clear , fhr cat 2 with variable decel , good recovery . wants pain meds
--- NOTE | 2018-02-03 17:31 | PN ---
Progress Note (short form) - Note Progress Note: 403 pm cx 9 cm. good varibilit, variable decel improved , expect vaginal delivery
--- NOTE | 2018-02-03 17:32 | PN ---
Progress Note (short form) - Note Progress Note: cx full , 100 vx 0 , mr, pushing, tracing same , reassuring
[2018-02-03 17:38] LABS: ARTERIAL BLD GAS O2 SATURATION 11.8 % (90-98.9); ARTERIAL BLOOD GAS BASE EXCESS -2.6 meq/l (-2-2); ARTERIAL BLOOD GAS pH 7.25 (7.35-7.45)
[2018-02-03 17:47] LABS: ARTERIAL BLOOD GAS PCO2 61.2 mmHg (35-45)
[2018-02-03 17:51] LABS: VENOUS PC02 40.8 mmHg (38-52); VENOUS PH 7.35 (7.32-7.42); VENOUS PO2 36.4 mmHg (28-48)
[2018-02-03] MEDS: FERROUS SO4 325 MG TABLET (FP) PO SCH (22:26)
[2018-02-04] MEDS: IBUPROFEN 600 MG TABLET (FP) PO PRN ×2 (05:20→08:11)
[2018-02-04] MEDS: ACETAMINOPHEN 325 MG TABLET (FP) PO PRN ×2 (05:20→08:10)
[2018-02-04 07:45] LABS: BASO % 0.3 % (0-2.0); EOS % 1.5 % (0-4.5); HEMATOCRIT 32.6 % (32.4-45.2); HEMOGLOBIN 10.8 GM/dL (10.7-15.3); LYMPH % 20.6 % (8-40); MCH 29.8 pg (25.7-33.7); MCHC 33.1 g/dl (32.0-36.0); MEAN CELL VOLUME 89.9 fl (80-96); NEUT % 70.6 % (42.8-82.8); PLATELET COUNT 141 K/MM3 (134-434); RBC 3.62 M/mm3 (3.60-5.2); RDW 13.8 % (11.6-15.6)
[2018-02-04] MEDS: FERROUS SO4 325 MG TABLET (FP) PO SCH ×2 (10:28→22:00)
[2018-02-04] MEDS: PRENATAL VITAMINS W/ FOLIC ACID TABLET (FP) PO SCH (10:28)
--- NOTE | 2018-02-04 16:05 | PN ---
Post Progress Note Post Day: 1 Type of Delivery: Vital Signs: Vital Signs Temperature 98.5 F 02/04/18 15:34 Pulse Rate 73 02/04/18 15:34 Respiratory Rate 20 02/04/18 15:34 Blood Pressure 125/71 02/04/18 15:34 O2 Sat by Pulse Oximetry (%) 100 02/03/18 18:45 Uterus: Yes: Fundus Firm Abdomen/GI: Yes: Abdomen soft Lochia: Yes: Rubra Lochia, amount: Small Perineum: Yes: Intact - Labs Labs: CBC WBC 11.0 K/mm3 (4.0-10.0) H 02/04/18 07:15 RBC 3.62 M/mm3 (3.60-5.2) 02/04/18 07:15 Hgb 10.8 GM/dL (10.7-15.3) 02/04/18 07:15 Hct 32.6 % (32.4-45.2) 02/04/18 07:15 MCV 89.9 fl (80-96) 02/04/18 07:15 MCH 29.8 pg (25.7-33.7) 02/04/18 07:15 MCHC 33.1 g/dl (32.0-36.0) 02/04/18 07:15 RDW 13.8 % (11.6-15.6) 02/04/18 07:15 Plt Count 141 K/MM3 (134-434) 02/04/18 07:15 MPV 10.0 fl (7.5-11.1) 02/04/18 07:15 Absolute Neuts (auto) 7.8 K/mm3 (1.5-8.0) 02/04/18 07:15 Neutrophils % 70.6 % (42.8-82.8) 02/04/18 07:15 Lymphocytes % 20.6 % (8-40) 02/04/18 07:15 Monocytes % 7.0 % (3.8-10.2) 02/04/18 07:15 Eosinophils % 1.5 % (0-4.5) 02/04/18 07:15 Basophils % 0.3 % (0-2.0) 02/04/18 07:15 Nucleated RBC % 0 % (0-0) 02/04/18 07:15 Assessment/Plan as above oob reg diet
[2018-02-04] MEDS: OXYTOCIN 20 UNITS in 0.9% NS 20 UNIT/1,000 ML INFUS.BAG IV SCH (20:56)
[2018-02-04] MEDS ORDERED: SENNOSIDES/DOCUSATE COMBO (SENNA PLUS) TABLET (UD) PO PRN (22:00)
[2018-02-05] MEDS: PRENATAL VITAMINS W/ FOLIC ACID TABLET (FP) PO SCH (10:08)
[2018-02-05] MEDS: FERROUS SO4 325 MG TABLET (FP) PO SCH (10:08)
--- NOTE | 2018-02-05 10:09 | DS ---
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: Vital Signs Temperature 97.9 F 02/04/18 22:00 Pulse Rate 68 02/04/18 22:00 Respiratory Rate 18 02/04/18 22:00 Blood Pressure 132/74 02/04/18 22:00 O2 Sat by Pulse Oximetry (%) 100 02/03/18 18:45 Constitutional: Yes: Well Nourished, No Distress, Calm Eyes: Yes: WNL, Conjunctiva Clear, EOM Intact HENT: Yes: WNL, Atraumatic, Normocephalic Neck: Yes: WNL, Supple, Trachea Midline Cardiovascular: Yes: WNL, Regular Rate and Rhythm Respiratory: Yes: WNL, Regular, CTA Bilaterally Gastrointestinal: Yes: WNL ...Rectal Exam: Yes: WNL Renal/: Yes: WNL External Genitalia: Yes: Normal ....Post : Yes: Uterus firm, Uterus non-tender, Slight lochia rubra Breast(s): Yes: WNL Musculoskeletal: Yes: WNL Extremities: Yes: WNL Edema: No Integumentary: Yes: WNL Neurological: Yes: WNL, Alert, Oriented ...Motor Strength: WNL Psychiatric: Yes: WNL, Alert, Oriented Labs: CBC, BMP 02/04/18 07:15 02/03/18 10:53 Delivery - Delivery Vaginal Delivery: Spontaneous (no complication) Type of Anesthesia: None Episiotomy/Laceration: None EBL (cc): 300 Delivery, Single - Stages of Labor Date 1st Stage Initiatied: 02/03/18 Time 1st Stage Initiated: 03:00 Date 2nd Stage Initiated: 02/03/18 Time 2nd Stage Initiated: 16:27 Date of Delivery: 02/03/18 Time of Delivery: 17:13 Time Placenta Delivered: 17:15 Placenta: Yes: Spontaneous - Condition of Infant 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 Name: Kaden Calhoun Infant Gender: Female Weight: 6 lb 12 oz Position: Left, OA Total Hours ROM (Hrs/Mins): 5hrs 10min - 1 Minute Total Score: 8 5 Minutes Total Score: 9 - Feeding Plan Initial Plan: Elected not to breastfeed exclusively throughout hospitalization Discharge Summary Reason For Visit: LABOR ADMISSION Current Active Problems Uterine contractions (Acute) Uterine contractions (Acute) Procedures: Principal: Hospital Course: no complication Condition: Good - Instructions Diet, Activity, Other Instructions: regular diet, no intercourse, if heavy vaginal bleeding, pain, fever call MD Disposition: HOME - Home Medications Comprehensive Discharge Medication List: Ambulatory Orders Vit 93/Iron Fum/Folic [ Formula Tablet] 1 each PO DAILY Ferrous Sulfate [Feosol] 325 mg PO DAILY 02/03/18 Ibuprofen [Motrin -] 600 mg PO TID #21 tablet 02/05/18
[2018-02-05 11:23] VITALS: BP 113/77; PULSE 65; TEMP 98.4
== END 2018-02-05 13:45 | disposition home or self-care (01) | DRG 560 ==
LOC: JDEL 08:35 → JLDR 10:30 → J3W 19:56
PROVIDERS: ADMIT Obstetrics & Gynecology; ATTEND Obstetrics & Gynecology
PROC: 10E0XZZ Delivery of Products of Conception, External Approach (ICD-10-PCS; principal; 2018-02-03)
DX: O80 Encounter for full-term uncomplicated delivery (principal); Z3A.39 39 weeks gestation of pregnancy; Z37.0 Single live birth
CPT/HCPCS: 36415; 36600; 59025; 59409; 80048; 82803; 85025; 85610; 85730; 86593; 86850; 86900; 86901

== ENCOUNTER 2018-09-09 15:56 | Emergency (ER) | payer OTHER | END 2018-09-09 21:18 | disposition home or self-care (01) | LOC: JER 15:56 ==